=== PATIENT | female | born 1945 | race American Indian/Alaskan Native ===

== ENCOUNTER 2021-12-05 13:36 | Inpatient (IN) | payer OTHER, BC ==
[2021-12-05 16:32] LABS: BASO % 0.4 % (0-2.0); EOS % 0.6 % (0-4.5); HEMATOCRIT 34.4 % (32.4-45.2); HEMOGLOBIN 10.8 GM/dL (10.7-15.3); MCH 26.3 pg (25.7-33.7); MCHC 31.3 g/dl (32.0-36.0); MEAN CELL VOLUME 84.1 fl (80-96); MEAN PLT VOLUME 7.7 fl (7.5-11.1); MONO % 6.5 % (3.8-10.2); NEUT % 80.5 % (42.8-82.8); PLATELET COUNT 314 10^3/uL (134-434); RDW 15.6 % (11.6-15.6); WHITE BLOOD COUNT 9.5 K/mm3 (4.0-10.0)
[2021-12-05 16:43] LABS: CALCIUM 9.6 mg/dL (8.5-10.1)
[2021-12-05 16:44] LABS: ALBUMIN 2.9 g/dl (3.4-5.0); BLOOD UREA NITROGEN 17.4 mg/dL (7-18); MAGNESIUM 2.3 mg/dL (1.8-2.4)
[2021-12-05 16:47] LABS: CREATININE 0.7 mg/dL (0.55-1.3)
[2021-12-05 16:49] LABS: BILIRUBIN,TOTAL 0.4 mg/dL (0.2-1)
[2021-12-05 16:52] LABS: N-TERMINAL BNP 691.1 pg/ml (5-450)
[2021-12-05] MEDS ORDERED: LABETALOL HCL 5 MG/1 ML (100MG/20 ML VIAL) IVPUSH ONE (17:21)
[2021-12-05] MEDS: INSULIN SLIDING SCALE (NOVOLOG) 1 VIAL SQ SCH (21:46)
[2021-12-05] MEDS ORDERED: INSULIN (LEVEMIR) 100 UNITS/ML UNITS SQ ONE (22:00)
[2021-12-05] MEDS ORDERED: LIDOCAINE 5% TOPICAL PATCH TP ONE (22:45)
[2021-12-05] MEDS ORDERED: LIDOCAINE 5% TOPICAL PATCH ONE (23:32)
[2021-12-06] MEDS: LEVOTHYROXINE NA 88 MCG TABLET (FP) PO SCH (06:11)
[2021-12-06] MEDS: INSULIN SLIDING SCALE (NOVOLOG) 1 VIAL SQ SCH ×4 (06:17→21:27)
[2021-12-06] MEDS ORDERED: amLODIPine BESYLATE 5 MG TABLET (FP) PO SCH ×2 (08:00→10:00)
[2021-12-06 08:17] LABS: BASO % 0.6 % (0-2.0); EOS % 1.1 % (0-4.5); HEMATOCRIT 32.8 % (32.4-45.2); HEMOGLOBIN 10.5 GM/dL (10.7-15.3); LYMPH % 13.8 % (8-40); MCH 26.9 pg (25.7-33.7); MCHC 32.1 g/dl (32.0-36.0); MEAN CELL VOLUME 83.7 fl (80-96); MEAN PLT VOLUME 7.5 fl (7.5-11.1); MONO % 6.8 % (3.8-10.2); NEUT % 77.7 % (42.8-82.8); PLATELET COUNT 271 10^3/uL (134-434); RBC 3.91 M/mm3 (3.60-5.2); RDW 15.4 % (11.6-15.6); WHITE BLOOD COUNT 8.9 K/mm3 (4.0-10.0)
[2021-12-06 08:41] LABS: ACTIVATED PTT 34.4 SECONDS (25.2-36.5)
[2021-12-06 08:46] LABS: ALBUMIN 2.7 g/dl (3.4-5.0); CALCIUM 8.5 mg/dL (8.5-10.1)
[2021-12-06 08:47] LABS: BLOOD UREA NITROGEN 12.2 mg/dL (7-18)
[2021-12-06 08:49] LABS: CREATININE 0.8 mg/dL (0.55-1.3)
[2021-12-06 08:50] LABS: PHOSPHOROUS 3.1 mg/dL (2.5-4.9)
[2021-12-06 08:51] LABS: BILIRUBIN,TOTAL 0.6 mg/dL (0.2-1); TOT PROT 7.5 g/dl (6.4-8.2)
[2021-12-06] MEDS ORDERED: amLODIPine BESYLATE 5 MG TABLET (FP) ONE (08:53)
[2021-12-06] MEDS ORDERED: RAMIPRIL 5 MG CAPSULE ONE (08:53)
[2021-12-06] MEDS: amLODIPine BESYLATE 5 MG TABLET (FP) PO SCH (08:55)
[2021-12-06] MEDS: RAMIPRIL 5 MG CAPSULE PO SCH (08:55)
[2021-12-06 09:10] LABS: INR 1.06 (0.83-1.09); PROTHROMBIN TIME (PATIENT) 12.2 SEC (9.7-13.0)
[2021-12-06] MEDS ORDERED: RAMIPRIL 5 MG CAPSULE PO SCH (10:00)
[2021-12-06] MEDS ORDERED: LIDOCAINE PATCH REMOVAL MC ONE (11:00)
[2021-12-06] MEDS: TIMOLOL 0.25% OPHTHALMIC SOL 5 ML BOTTLE OU SCH ×2 (12:36→21:27)
[2021-12-06 13:07] LABS: SARS-CoV-2 NAA Not Detected (Not Detected)
[2021-12-06 15:55] LABS: BF WBC & OTHER NUCLEATED CELLS 1270 /mm3
[2021-12-06 16:19] LABS: BODY FLUID MONOCYTE 10 %
[2021-12-06] MEDS: ATORVASTATIN CA 10 MG TABLET (FP) PO SCH (21:27)
[2021-12-07] MEDS: INSULIN SLIDING SCALE (NOVOLOG) 1 VIAL SQ SCH ×4 (06:01→21:48)
[2021-12-07] MEDS: LEVOTHYROXINE NA 88 MCG TABLET (FP) PO SCH (06:34)
[2021-12-07] MEDS: TIMOLOL 0.25% OPHTHALMIC SOL 5 ML BOTTLE OU SCH ×2 (09:30→21:42)
[2021-12-07] MEDS: ACETAMINOPHEN 325 MG TABLET (FP) PO PRN (09:30)
[2021-12-07] MEDS: amLODIPine BESYLATE 5 MG TABLET (FP) PO SCH (09:30)
[2021-12-07] MEDS: RAMIPRIL 5 MG CAPSULE PO SCH (09:30)
[2021-12-07] MEDS: ATORVASTATIN CA 10 MG TABLET (FP) PO SCH (21:42)
[2021-12-08] MEDS: INSULIN SLIDING SCALE (NOVOLOG) 1 VIAL SQ SCH ×4 (06:08→21:23)
[2021-12-08] MEDS: LEVOTHYROXINE NA 88 MCG TABLET (FP) PO SCH (06:09)
[2021-12-08] MEDS: amLODIPine BESYLATE 5 MG TABLET (FP) PO SCH (08:08)
[2021-12-08] MEDS: RAMIPRIL 5 MG CAPSULE PO SCH (08:08)
[2021-12-08] MEDS: ACETAMINOPHEN 325 MG TABLET (FP) PO PRN (08:20)
[2021-12-08] MEDS: TIMOLOL 0.25% OPHTHALMIC SOL 5 ML BOTTLE OU SCH ×2 (09:17→21:20)
[2021-12-08 09:38] LABS: HEMATOCRIT 33.2 % (32.4-45.2); HEMOGLOBIN 10.7 GM/dL (10.7-15.3); MCH 26.9 pg (25.7-33.7); MCHC 32.2 g/dl (32.0-36.0); MEAN CELL VOLUME 83.4 fl (80-96); PLATELET COUNT 299 10^3/uL (134-434); RBC 3.98 M/mm3 (3.60-5.2); RDW 15.8 % (11.6-15.6); WHITE BLOOD COUNT 14.9 K/mm3 (4.0-10.0)
[2021-12-08] MEDS: INSULIN (LEVEMIR) 100 UNITS/ML UNITS SQ SCH (09:43)
[2021-12-08 09:53] LABS: CALCIUM 8.3 mg/dL (8.5-10.1)
[2021-12-08 09:57] LABS: CREATININE 1.1 mg/dL (0.55-1.3)
[2021-12-08 09:58] LABS: TOT PROT 6.1 g/dl (6.4-8.2)
[2021-12-08 09:59] LABS: BILIRUBIN,TOTAL 0.9 mg/dL (0.2-1)
[2021-12-08 10:04] LABS: ALBUMIN 2.1 g/dl (3.4-5.0); BLOOD UREA NITROGEN 37.4 mg/dL (7-18)
[2021-12-08 14:08] LABS: BODY FLUID ALBUMIN 2.6 g/dL (Not Estab.)
[2021-12-08] MEDS: ATORVASTATIN CA 10 MG TABLET (FP) PO SCH (21:19)
[2021-12-09] MEDS: INSULIN SLIDING SCALE (NOVOLOG) 1 VIAL SQ SCH ×4 (06:01→21:28)
[2021-12-09] MEDS: INSULIN (LEVEMIR) 100 UNITS/ML UNITS SQ SCH (06:02)
[2021-12-09] MEDS: LEVOTHYROXINE NA 88 MCG TABLET (FP) PO SCH (06:37)
[2021-12-09] MEDS: amLODIPine BESYLATE 5 MG TABLET (FP) PO SCH (09:33)
[2021-12-09] MEDS: TIMOLOL 0.25% OPHTHALMIC SOL 5 ML BOTTLE OU SCH ×2 (09:33→21:23)
[2021-12-09] MEDS: RAMIPRIL 5 MG CAPSULE PO SCH (09:33)
[2021-12-09] MEDS ORDERED: INSULIN (NOVOLOG) ASPART 100 UNITS/ML 10ML VIAL ONE ×2 (17:18→18:00)
[2021-12-09] MEDS: guaiFENesin/D-METHORPHAN HB 10 ML UNIT-DOSE CUPS PO PRN (21:20)
[2021-12-09] MEDS: ATORVASTATIN CA 10 MG TABLET (FP) PO SCH (21:21)
[2021-12-10] MEDS: LEVOTHYROXINE NA 88 MCG TABLET (FP) PO SCH (06:32)
[2021-12-10] MEDS: INSULIN (LEVEMIR) 100 UNITS/ML UNITS SQ SCH (06:33)
[2021-12-10] MEDS: INSULIN SLIDING SCALE (NOVOLOG) 1 VIAL SQ SCH ×4 (06:37→22:01)
[2021-12-10] MEDS: RAMIPRIL 5 MG CAPSULE PO SCH (09:10)
[2021-12-10] MEDS: amLODIPine BESYLATE 5 MG TABLET (FP) PO SCH (09:11)
[2021-12-10] MEDS: TIMOLOL 0.25% OPHTHALMIC SOL 5 ML BOTTLE OU SCH ×2 (09:11→22:03)
[2021-12-10] MEDS: guaiFENesin/D-METHORPHAN HB 10 ML UNIT-DOSE CUPS PO PRN (16:04)
[2021-12-10] MEDS: ATORVASTATIN CA 10 MG TABLET (FP) PO SCH (22:01)
[2021-12-11] MEDS: INSULIN SLIDING SCALE (NOVOLOG) 1 VIAL SQ SCH ×4 (06:46→21:18)
[2021-12-11] MEDS: INSULIN (LEVEMIR) 100 UNITS/ML UNITS SQ SCH (06:46)
[2021-12-11] MEDS: LEVOTHYROXINE NA 88 MCG TABLET (FP) PO SCH (06:46)
[2021-12-11] MEDS: amLODIPine BESYLATE 5 MG TABLET (FP) PO SCH (08:26)
[2021-12-11] MEDS: TIMOLOL 0.25% OPHTHALMIC SOL 5 ML BOTTLE OU SCH ×2 (09:24→21:18)
[2021-12-11] MEDS: RAMIPRIL 5 MG CAPSULE PO SCH (09:24)
[2021-12-11] MEDS ORDERED: INSULIN (NOVOLOG) ASPART 100 UNITS/ML 10ML VIAL ONE (11:37)
[2021-12-11 13:11] VITALS: BMI 18.9
[2021-12-11] MEDS: ACETAMINOPHEN 325 MG TABLET (FP) PO PRN (17:05)
[2021-12-11] MEDS ORDERED: oxyCODONE HCL 5 MG TABLET PO PRN (18:00)
[2021-12-11] MEDS ORDERED: ACETAMINOPHEN 325 MG TABLET (FP) PO PRN (18:00)
[2021-12-11] MEDS: BENZOCAINE/MENTH/CETYLPYRD CL 1 EACH LOZENGE MM PRN (18:53)
[2021-12-11] MEDS: ATORVASTATIN CA 10 MG TABLET (FP) PO SCH (21:17)
[2021-12-12] MEDS: INSULIN SLIDING SCALE (NOVOLOG) 1 VIAL SQ SCH ×4 (06:13→22:00)
[2021-12-12] MEDS: INSULIN (LEVEMIR) 100 UNITS/ML UNITS SQ SCH (06:14)
[2021-12-12] MEDS: LEVOTHYROXINE NA 88 MCG TABLET (FP) PO SCH (06:35)
[2021-12-12] MEDS: BENZOCAINE/MENTH/CETYLPYRD CL 1 EACH LOZENGE MM PRN (06:35)
[2021-12-12 07:46] LABS: ALBUMIN 1.8 g/dl (3.4-5.0); CALCIUM 7.8 mg/dL (8.5-10.1)
[2021-12-12 07:49] LABS: CREATININE 0.7 mg/dL (0.55-1.3)
[2021-12-12 07:51] LABS: BILIRUBIN,TOTAL 0.5 mg/dL (0.2-1); TOT PROT 5.8 g/dl (6.4-8.2)
[2021-12-12 08:12] LABS: BASO % 0.5 % (0-2.0); EOS % 2.9 % (0-4.5); HEMATOCRIT 29.1 % (32.4-45.2); HEMOGLOBIN 9.7 GM/dL (10.7-15.3); LYMPH % 9.1 % (8-40); MCH 27.6 pg (25.7-33.7); MCHC 33.3 g/dl (32.0-36.0); MEAN CELL VOLUME 82.9 fl (80-96); MEAN PLT VOLUME 7.5 fl (7.5-11.1); MONO % 8.9 % (3.8-10.2); NEUT % 78.6 % (42.8-82.8); PLATELET COUNT 267 10^3/uL (134-434); RBC 3.51 M/mm3 (3.60-5.2); RDW 15.3 % (11.6-15.6); WHITE BLOOD COUNT 7.4 K/mm3 (4.0-10.0)
[2021-12-12] MEDS: amLODIPine BESYLATE 5 MG TABLET (FP) PO SCH (08:20)
[2021-12-12] MEDS: RAMIPRIL 5 MG CAPSULE PO SCH (08:20)
[2021-12-12] MEDS: TIMOLOL 0.25% OPHTHALMIC SOL 5 ML BOTTLE OU SCH ×2 (10:23→21:59)
[2021-12-12] MEDS: ATORVASTATIN CA 10 MG TABLET (FP) PO SCH (21:59)
[2021-12-13] MEDS: LEVOTHYROXINE NA 88 MCG TABLET (FP) PO SCH (06:11)
[2021-12-13] MEDS: INSULIN (LEVEMIR) 100 UNITS/ML UNITS SQ SCH (06:14)
[2021-12-13] MEDS: INSULIN SLIDING SCALE (NOVOLOG) 1 VIAL SQ SCH ×4 (06:14→22:02)
[2021-12-13] MEDS ORDERED: CYANOCOBALAMIN (VITAMIN B-12) 1000 MCG/1 ML VIAL IM ONE (08:00)
[2021-12-13] MEDS: amLODIPine BESYLATE 5 MG TABLET (FP) PO SCH (08:24)
[2021-12-13] MEDS: RAMIPRIL 5 MG CAPSULE PO SCH (08:26)
[2021-12-13] MEDS: FOLIC ACID 1 MG TABLET (FP) PO SCH (09:27)
[2021-12-13] MEDS: TIMOLOL 0.25% OPHTHALMIC SOL 5 ML BOTTLE OU SCH ×2 (09:29→22:33)
[2021-12-13] MEDS: ATORVASTATIN CA 10 MG TABLET (FP) PO SCH (21:57)
[2021-12-14 06:02] VITALS: BP 109/57; PULSE 69; TEMP 97.9
[2021-12-14] MEDS: INSULIN (LEVEMIR) 100 UNITS/ML UNITS SQ SCH (06:25)
[2021-12-14] MEDS: INSULIN SLIDING SCALE (NOVOLOG) 1 VIAL SQ SCH ×2 (06:26→11:55)
[2021-12-14] MEDS: LEVOTHYROXINE NA 88 MCG TABLET (FP) PO SCH (06:52)
[2021-12-14] MEDS: amLODIPine BESYLATE 5 MG TABLET (FP) PO SCH (10:11)
[2021-12-14] MEDS: FOLIC ACID 1 MG TABLET (FP) PO SCH (10:11)
[2021-12-14] MEDS: TIMOLOL 0.25% OPHTHALMIC SOL 5 ML BOTTLE OU SCH (10:11)
[2021-12-14] MEDS: RAMIPRIL 5 MG CAPSULE PO SCH (13:34)
== END 2021-12-14 16:10 | disposition home health service (06) | DRG 181 ==
LOC: JER 13:36 → JERBED 18:50 → J6S 12-06 19:07
PROVIDERS: ADMIT Hospitalist; ATTEND Internal Medicine
PROC: 0W9B30Z Drainage of Left Pleural Cavity with Drainage Device, Percutaneous Approach (ICD-10-PCS; principal; 2021-12-06)
PROC: 0BBP3ZX Excision of Left Pleura, Percutaneous Approach, Diagnostic (ICD-10-PCS; 2021-12-12)
PROC: 0WPBX0Z Removal of Drainage Device from Left Pleural Cavity, External Approach (ICD-10-PCS; 2021-12-13)
DX: C34.32 Malignant neoplasm of lower lobe, left bronchus or lung (principal); R64 Cachexia; Z68.1 Body mass index [BMI] 19.9 or less, adult; J98.11 Atelectasis; J91.0 Malignant pleural effusion; E03.9 Hypothyroidism, unspecified; E11.42 Type 2 diabetes mellitus with diabetic polyneuropathy; R91.8 Other nonspecific abnormal finding of lung field; I16.0 Hypertensive urgency; I10 Essential (primary) hypertension; R59.0 Localized enlarged lymph nodes; R60.0 Localized edema; E05.00 Thyrotoxicosis with diffuse goiter without thyrotoxic crisis or storm
CPT/HCPCS: 32408; 32557; 36415; 71045-TC-FY; 71046-TC-FY; 71260-TC; 77012-TC; 80053; 82042; 82150; 82945; 82962; 83615; 83735; 83880; 83986; 84100; 84157; 84443; 84478; 84484; 85025; 85027; 85610; 85730; 86850; 86900; 86901; 87070; 87075; 87102; 87116; 87205; 87206; 87210; 88108; 88305-TC; 88341-TC; 93005; 93010; 93306-TC; 93970-TC; 99285-25; C1729; C1769; C9803; Q9967; U0003; U0005

== ENCOUNTER 2022-01-02 04:59 | Day surgery (SDC) | payer OTHER, BC ==
[2021-12-29 16:12] VITALS: BMI 20.1
[2022-01-02] MEDS ORDERED: SODIUM CHLORIDE 250 ML IV ONE (09:00)
[2022-01-02] MEDS ORDERED: DEXAMETHASONE SODIUM PHOSPHATE 10 MG in SODIUM CHLORIDE 50 ML IVPB ONE (09:30)
[2022-01-02] MEDS ORDERED: PALONOSETRON HCL 0.25 MG/5 ML VIAL IVPUSH ONE (09:30)
[2022-01-02] MEDS ORDERED: FOSAPREPITANT DIMEGLUMINE 150 MG VIAL IVPB ONE (09:30)
[2022-01-02] MEDS ORDERED: CARBOPLATIN IVPB ONE (10:00)
[2022-01-02] MEDS ORDERED: SODIUM CHLORIDE IVPB ONE (10:00)
[2022-01-02] MEDS ORDERED: SODIUM CHLORIDE IV ONE (10:30)
[2022-01-02] MEDS ORDERED: ETOPOSIDE IV ONE (10:30)
[2022-01-02] MEDS ORDERED: MIDAZOLAM HCL 2 MG/2 ML SINGLE DOSE VIAL ONE (10:59)
[2022-01-02] MEDS ORDERED: MIDAZOLAM HCL 2 MG/2 ML SINGLE DOSE VIAL IVPUSH ONE ×2 (11:10→11:20)
[2022-01-02] MEDS ORDERED: FOSAPREPITANT DIMEGLUMINE 150 MG in SODIUM CHLORIDE 145 ML IVPB ONE (14:00)
[2022-01-02 17:19] VITALS: TEMP 98.1
[2022-01-02 18:00] VITALS: BP 166/61; PULSE 81
== END 2022-01-02 18:30 | disposition home or self-care (01) ==
LOC: JONCCHEMO 04:59 → JRADIR 04:59 → JONCCHEMO 18:30
PROVIDERS: ATTEND Internal Medicine Hematology & Oncology
PROC: 0JH63WZ Insertion of Totally Implantable Vascular Access Device into Chest Subcutaneous Tissue and Fascia, Percutaneous Approach (ICD-10-PCS; principal; 2022-01-02)
PROC: 02HV33Z Insertion of Infusion Device into Superior Vena Cava, Percutaneous Approach (ICD-10-PCS; 2022-01-02)
PROC: B518ZZA Fluoroscopy of Superior Vena Cava, Guidance (ICD-10-PCS; 2022-01-02)
PROC: 3E04305 Introduction of Other Antineoplastic into Central Vein, Percutaneous Approach (ICD-10-PCS; 2022-01-02)
DX: C54.1 Malignant neoplasm of endometrium (principal)
CPT/HCPCS: 36561; 96367; 96375; 96413; 96415; 96417; C1788; J1453; J2469

== ENCOUNTER 2022-01-03 07:45 | Day surgery (SDC) | payer OTHER, BC ==
[2022-01-03] MEDS ORDERED: SODIUM CHLORIDE 250 ML IV ONE (09:00)
[2022-01-03] MEDS ORDERED: DEXAMETHASONE SODIUM PHOSPHATE 10 MG in SODIUM CHLORIDE 50 ML IVPB ONE (09:30)
[2022-01-03] MEDS ORDERED: SODIUM CHLORIDE IV ONE (10:00)
[2022-01-03] MEDS ORDERED: ETOPOSIDE IV ONE (10:00)
[2022-01-03 16:48] VITALS: TEMP 97.8
[2022-01-03 17:05] VITALS: BP 148/62; PULSE 72
== END 2022-01-03 14:10 | disposition home or self-care (01) ==
LOC: JONCCHEMO 07:45
PROVIDERS: ATTEND Internal Medicine Hematology & Oncology
DX: Z51.11 Encounter for antineoplastic chemotherapy (principal); C54.1 Malignant neoplasm of endometrium
CPT/HCPCS: 96375; 96413; 96415

== ENCOUNTER 2022-01-04 08:24 | Day surgery (SDC) | payer OTHER, BC ==
[2022-01-04] MEDS ORDERED: SODIUM CHLORIDE 250 ML IV ONE (09:00)
[2022-01-04] MEDS ORDERED: DEXAMETHASONE SODIUM PHOSPHATE 10 MG in SODIUM CHLORIDE 50 ML IVPB ONE (09:30)
[2022-01-04] MEDS ORDERED: ETOPOSIDE IV ONE (10:00)
[2022-01-04] MEDS ORDERED: SODIUM CHLORIDE IV ONE (10:00)
[2022-01-04 11:53] LABS: HEMATOCRIT 29.6 % (32.4-45.2); HEMOGLOBIN 9.7 GM/dL (10.7-15.3); MCHC 32.8 g/dl (32.0-36.0); MEAN CELL VOLUME 82.3 fl (80-96); MEAN PLT VOLUME 7.3 fl (7.5-11.1); PLATELET COUNT 287 10^3/uL (134-434); WHITE BLOOD COUNT 15.8 K/mm3 (4.0-10.0)
[2022-01-04 12:13] LABS: ALBUMIN 2.7 g/dl (3.4-5.0); CALCIUM 8.9 mg/dL (8.5-10.1)
[2022-01-04 12:16] LABS: CREATININE 0.9 mg/dL (0.55-1.3)
[2022-01-04 12:18] LABS: BILIRUBIN,TOTAL 0.3 mg/dL (0.2-1); TOT PROT 7.6 g/dl (6.4-8.2)
[2022-01-04 12:39] LABS: ANISOCYTOSIS 0; MACROCYTOSIS 0
[2022-01-04] MEDS ORDERED: PEGFILGRASTIM (NEULASTA ONPRO) 6 MG/0.6 ML KIT SQ ONE (14:00)
[2022-01-04 15:37] VITALS: TEMP 97.5
[2022-01-04 15:46] VITALS: BP 164/60; PULSE 71
[2022-01-04] MEDS ORDERED: PORTA CATH FLUSH 10 ML IVPUSH PRN (15:46)
== END 2022-01-04 14:30 | disposition home or self-care (01) ==
LOC: JONCCHEMO 08:24
PROVIDERS: ATTEND Internal Medicine Hematology & Oncology
PROC: 3E04305 Introduction of Other Antineoplastic into Central Vein, Percutaneous Approach (ICD-10-PCS; principal; 2022-01-04)
PROC: 3E013GC Introduction of Other Therapeutic Substance into Subcutaneous Tissue, Percutaneous Approach (ICD-10-PCS; 2022-01-04)
DX: Z51.11 Encounter for antineoplastic chemotherapy (principal); C54.1 Malignant neoplasm of endometrium
CPT/HCPCS: 36415; 80053; 85025; 96367; 96372; 96413; 96415; J2506

== ENCOUNTER 2022-01-20 10:35 | Inpatient (IN) | payer OTHER, BC ==
[2022-01-20 11:00] VITALS: BMI 19.7
[2022-01-20] MEDS ORDERED: ACETAMINOPHEN 1000 MG/100 ML BAG IVPB ONE (11:55)
[2022-01-20] MEDS ORDERED: morphine SULFATE 4 MG/ML VIAL IVPUSH ONE ×2 (12:37→17:17)
[2022-01-20] MEDS ORDERED: LIDOCAINE 5% TOPICAL PATCH TP ONE (12:38)
[2022-01-20] MEDS ORDERED: LIDOCAINE 5% TOPICAL PATCH ONE (13:37)
[2022-01-20 13:38] LABS: HEMATOCRIT 27.1 % (32.4-45.2); HEMOGLOBIN 8.8 GM/dL (10.7-15.3); MCH 26.3 pg (25.7-33.7); MCHC 32.3 g/dl (32.0-36.0); MEAN CELL VOLUME 81.3 fl (80-96); MEAN PLT VOLUME 6.8 fl (7.5-11.1); PLATELET COUNT 231 10^3/uL (134-434); RBC 3.33 M/mm3 (3.60-5.2); RDW 17.5 % (11.6-15.6); WHITE BLOOD COUNT 23.2 K/mm3 (4.0-10.0)
[2022-01-20 13:59] LABS: CALCIUM 8.9 mg/dL (8.5-10.1)
[2022-01-20 14:00] LABS: ALBUMIN 2.6 g/dl (3.4-5.0); BLOOD UREA NITROGEN 10.2 mg/dL (7-18)
[2022-01-20 14:00] LABS: PH,URINE 7.5 (5.0-8.0); URINE APPEARANCE CLEAR; URINE BILIRUBIN NEGATIVE (NEGATIVE); URINE COLOR YELLOW; URINE GLUCOSE (UA) NEGATIVE (NEGATIVE); URINE KETONE NEGATIVE (NEGATIVE); URINE LEUK ESTERASE NEGATIVE (NEGATIVE); URINE NITRITE NEGATIVE (NEGATIVE); URINE PROTEIN NEGATIVE (NEGATIVE); URINE UROBILINOGEN 0.2 mg/dL (0.2-1.0)
[2022-01-20 14:03] LABS: CREATININE 0.7 mg/dL (0.55-1.3)
[2022-01-20 14:05] LABS: BILIRUBIN,TOTAL 0.3 mg/dL (0.2-1); TOT PROT 7.3 g/dl (6.4-8.2)
[2022-01-20] MEDS ORDERED: POTASSIUM CHLORIDE TABS 20 MEQ TABLET.ER (FP) PO ONE ×2 (14:26→14:32)
[2022-01-20 15:11] LABS: ANISOCYTOSIS 2+; MACROCYTOSIS 0; TEAR DROP CELLS 1+
[2022-01-20] MEDS ORDERED: morphine SULFATE 4 MG/ML VIAL ONE (17:21)
[2022-01-20] MEDS ORDERED: ONDANSETRON 4 MG/2 ML VIAL IVPUSH ONE (17:33)
[2022-01-20] MEDS ORDERED: ONDANSETRON 4 MG/2 ML VIAL ONE (17:33)
[2022-01-20] MEDS ORDERED: LIDOCAINE PATCH REMOVAL MC ONE (22:00)
[2022-01-20] MEDS ORDERED: ACETAMINOPHEN 1000 MG/100 ML BAG IVPB PRN (22:34)
[2022-01-21] MEDS: LEVOTHYROXINE NA 88 MCG TABLET (FP) PO SCH (06:17)
[2022-01-21] MEDS ORDERED: LIDOCAINE 5% TOPICAL PATCH TP SCH (10:00)
[2022-01-21 10:15] LABS: HEMOGLOBIN 8.4 GM/dL (10.7-15.3); MCH 26.6 pg (25.7-33.7); MCHC 32.3 g/dl (32.0-36.0); MEAN CELL VOLUME 82.2 fl (80-96); PLATELET COUNT 239 10^3/uL (134-434); RBC 3.17 M/mm3 (3.60-5.2); RDW 18.1 % (11.6-15.6)
[2022-01-21] MEDS: amLODIPine BESYLATE 5 MG TABLET (FP) PO SCH (10:17)
[2022-01-21] MEDS: ENOXAPARIN NA (PORCINE) 40 MG/0.4 ML DISP.SYRIN SQ SCH (10:17)
[2022-01-21] MEDS: LISINOPRIL 10 MG TABLET PO SCH (10:17)
[2022-01-21 10:26] LABS: CALCIUM 8.6 mg/dL (8.5-10.1)
[2022-01-21 10:27] LABS: ALBUMIN 2.3 g/dl (3.4-5.0); BLOOD UREA NITROGEN 10.8 mg/dL (7-18)
[2022-01-21 10:30] LABS: CREATININE 0.7 mg/dL (0.55-1.3)
[2022-01-21 10:31] LABS: BILIRUBIN,TOTAL 0.4 mg/dL (0.2-1); TOT PROT 6.6 g/dl (6.4-8.2)
[2022-01-21] MEDS: TIMOLOL 0.25% OPHTHALMIC SOL 5 ML BOTTLE OU SCH ×3 (10:40→22:09)
[2022-01-21] MEDS: INSULIN SLIDING SCALE (NOVOLOG) 1 VIAL SQ SCH ×4 (10:41→22:13)
[2022-01-21 11:14] LABS: ANISOCYTOSIS 1+; MACROCYTOSIS 0
[2022-01-21] MEDS ORDERED: FENTANYL PATCH WASTE TD PRN (11:54)
[2022-01-21] MEDS ORDERED: fentaNYL 12mcg/hr PATCH.TD72 TD SCH (12:00)
[2022-01-21] MEDS ORDERED: LIDOCAINE PATCH REMOVAL MC SCH (22:00)
[2022-01-21] MEDS: morphine SULFATE 4 MG/ML VIAL IVPUSH PRN (22:18)
[2022-01-22] MEDS: LEVOTHYROXINE NA 88 MCG TABLET (FP) PO SCH (06:29)
[2022-01-22] MEDS: INSULIN SLIDING SCALE (NOVOLOG) 1 VIAL SQ SCH ×4 (06:31→22:06)
[2022-01-22] MEDS ORDERED: fentaNYL 25mcg/hr PATCH.TD72 TD SCH (09:00)
[2022-01-22] MEDS: amLODIPine BESYLATE 5 MG TABLET (FP) PO SCH (10:28)
[2022-01-22] MEDS: LISINOPRIL 10 MG TABLET PO SCH (10:28)
[2022-01-22] MEDS: TIMOLOL 0.25% OPHTHALMIC SOL 5 ML BOTTLE OU SCH ×2 (10:28→22:03)
[2022-01-22] MEDS: ENOXAPARIN NA (PORCINE) 40 MG/0.4 ML DISP.SYRIN SQ SCH (10:29)
[2022-01-22] MEDS: FENTANYL PATCH WASTE TD PRN (10:29)
[2022-01-22] MEDS ORDERED: INSULIN (NOVOLOG) ASPART 100 UNITS/ML 10ML VIAL ONE (11:10)
[2022-01-22] MEDS ORDERED: PORTA CATH FLUSH 10 ML IVPUSH PRN (12:40)
[2022-01-22] MEDS: morphine SULFATE 4 MG/ML VIAL IVPUSH PRN (13:42)
[2022-01-22] MEDS: RAMIPRIL 5 MG CAPSULE PO SCH (14:22)
[2022-01-23] MEDS ORDERED: oxyCODONE HCL 5 MG TABLET PO ONE (05:10)
[2022-01-23] MEDS: LEVOTHYROXINE NA 88 MCG TABLET (FP) PO SCH (06:01)
[2022-01-23] MEDS: INSULIN SLIDING SCALE (NOVOLOG) 1 VIAL SQ SCH ×4 (06:01→21:39)
[2022-01-23 08:12] LABS: BASO % 0.5 % (0-2.0); EOS % 0.1 % (0-4.5); HEMOGLOBIN 7.6 GM/dL (10.7-15.3); LYMPH % 11.3 % (8-40); MCH 27.1 pg (25.7-33.7); MCHC 32.9 g/dl (32.0-36.0); MEAN CELL VOLUME 82.5 fl (80-96); MEAN PLT VOLUME 7.1 fl (7.5-11.1); MONO % 8.7 % (3.8-10.2); NEUT % 79.4 % (42.8-82.8); PLATELET COUNT 259 10^3/uL (134-434); RBC 2.79 M/mm3 (3.60-5.2); RDW 17.9 % (11.6-15.6); WHITE BLOOD COUNT 10.7 K/mm3 (4.0-10.0)
[2022-01-23 08:20] LABS: CALCIUM 8.1 mg/dL (8.5-10.1)
[2022-01-23 08:21] LABS: ALBUMIN 2.1 g/dl (3.4-5.0)
[2022-01-23 08:24] LABS: CREATININE 0.7 mg/dL (0.55-1.3)
[2022-01-23 08:26] LABS: BILIRUBIN,TOTAL 0.6 mg/dL (0.2-1); TOT PROT 6.1 g/dl (6.4-8.2)
[2022-01-23] MEDS ORDERED: TIZANIDINE HCL 2 MG TABLET PO PRN (08:41)
[2022-01-23] MEDS: amLODIPine BESYLATE 5 MG TABLET (FP) PO SCH (10:05)
[2022-01-23] MEDS: ENOXAPARIN NA (PORCINE) 40 MG/0.4 ML DISP.SYRIN SQ SCH (10:05)
[2022-01-23] MEDS: RAMIPRIL 5 MG CAPSULE PO SCH (10:05)
[2022-01-23] MEDS: TIMOLOL 0.25% OPHTHALMIC SOL 5 ML BOTTLE OU SCH ×2 (10:19→21:40)
[2022-01-23] MEDS: GABAPENTIN 100 MG CAPSULE PO SCH ×2 (13:08→21:38)
[2022-01-23] MEDS ORDERED: oxyCODONE HCL 5 MG TABLET PO PRN (14:00)
[2022-01-23] MEDS ORDERED: ACETAMINOPHEN 325 MG TABLET (FP) PO PRN (14:00)
[2022-01-24] MEDS: LEVOTHYROXINE NA 88 MCG TABLET (FP) PO SCH (06:49)
[2022-01-24] MEDS: INSULIN SLIDING SCALE (NOVOLOG) 1 VIAL SQ SCH ×4 (06:50→21:40)
[2022-01-24] MEDS: GABAPENTIN 100 MG CAPSULE PO SCH ×3 (06:50→21:40)
[2022-01-24] MEDS ORDERED: FENTANYL PATCH WASTE TD PRN (08:00)
[2022-01-24] MEDS ORDERED: fentaNYL 50mcg/hr PATCH.TD72 TD SCH (08:00)
[2022-01-24] MEDS ORDERED: DOCUSATE SODIUM 100 MG CAPSULE (FP) PO PRN (08:00)
[2022-01-24 08:12] LABS: HEMATOCRIT 25.1 % (32.4-45.2); MCH 26.7 pg (25.7-33.7); MCHC 32.1 g/dl (32.0-36.0); MEAN CELL VOLUME 83.2 fl (80-96); PLATELET COUNT 301 10^3/uL (134-434); RBC 3.02 M/mm3 (3.60-5.2); RDW 18.2 % (11.6-15.6); WHITE BLOOD COUNT 11.2 K/mm3 (4.0-10.0)
[2022-01-24 08:27] LABS: CALCIUM 8.6 mg/dL (8.5-10.1)
[2022-01-24 08:29] LABS: ALBUMIN 2.2 g/dl (3.4-5.0); BLOOD UREA NITROGEN 16.8 mg/dL (7-18)
[2022-01-24 08:31] LABS: CREATININE 0.7 mg/dL (0.55-1.3)
[2022-01-24 08:33] LABS: BILIRUBIN,TOTAL 0.2 mg/dL (0.2-1); TOT PROT 6.2 g/dl (6.4-8.2)
[2022-01-24] MEDS: amLODIPine BESYLATE 5 MG TABLET (FP) PO SCH (10:00)
[2022-01-24] MEDS: ENOXAPARIN NA (PORCINE) 40 MG/0.4 ML DISP.SYRIN SQ SCH (10:00)
[2022-01-24] MEDS: TIMOLOL 0.25% OPHTHALMIC SOL 5 ML BOTTLE OU SCH ×2 (10:00→21:39)
[2022-01-24] MEDS: RAMIPRIL 5 MG CAPSULE PO SCH (10:01)
[2022-01-24] MEDS: FENTANYL PATCH WASTE TD PRN (16:36)
[2022-01-24] MEDS: ONDANSETRON 4 MG/2 ML VIAL IVPUSH PRN (16:37)
[2022-01-25] MEDS: LEVOTHYROXINE NA 88 MCG TABLET (FP) PO SCH (06:27)
[2022-01-25] MEDS: GABAPENTIN 100 MG CAPSULE PO SCH ×3 (06:27→21:40)
[2022-01-25] MEDS: INSULIN SLIDING SCALE (NOVOLOG) 1 VIAL SQ SCH ×4 (06:27→21:36)
[2022-01-25] MEDS ORDERED: FENTANYL PATCH WASTE MC PRN (08:41)
[2022-01-25] MEDS ORDERED: fentaNYL 25mcg/hr PATCH.TD72 TD SCH (08:45)
[2022-01-25] MEDS: TIMOLOL 0.25% OPHTHALMIC SOL 5 ML BOTTLE OU SCH ×2 (09:27→21:40)
[2022-01-25] MEDS: amLODIPine BESYLATE 5 MG TABLET (FP) PO SCH (09:27)
[2022-01-25] MEDS: RAMIPRIL 5 MG CAPSULE PO SCH (09:27)
[2022-01-25] MEDS: ENOXAPARIN NA (PORCINE) 40 MG/0.4 ML DISP.SYRIN SQ SCH (09:27)
[2022-01-25] MEDS: ONDANSETRON 4 MG/2 ML VIAL IVPUSH PRN (19:07)
[2022-01-26] MEDS: LEVOTHYROXINE NA 88 MCG TABLET (FP) PO SCH (06:07)
[2022-01-26] MEDS: GABAPENTIN 100 MG CAPSULE PO SCH ×3 (06:07→22:50)
[2022-01-26] MEDS: INSULIN SLIDING SCALE (NOVOLOG) 1 VIAL SQ SCH ×4 (06:13→23:00)
[2022-01-26 11:16] LABS: HEMATOCRIT 26.5 % (32.4-45.2); HEMOGLOBIN 8.4 GM/dL (10.7-15.3); MCH 26.7 pg (25.7-33.7); MCHC 31.7 g/dl (32.0-36.0); MEAN CELL VOLUME 84.2 fl (80-96); MEAN PLT VOLUME 7.2 fl (7.5-11.1); PLATELET COUNT 356 10^3/uL (134-434); RBC 3.15 M/mm3 (3.60-5.2); RDW 18.6 % (11.6-15.6); WHITE BLOOD COUNT 12.9 K/mm3 (4.0-10.0)
[2022-01-26 11:34] LABS: ALBUMIN 2.3 g/dl (3.4-5.0); BLOOD UREA NITROGEN 20.1 mg/dL (7-18); CALCIUM 8.7 mg/dL (8.5-10.1)
[2022-01-26 11:37] LABS: CREATININE 0.8 mg/dL (0.55-1.3)
[2022-01-26 11:38] LABS: BILIRUBIN,TOTAL 0.3 mg/dL (0.2-1); TOT PROT 6.8 g/dl (6.4-8.2)
[2022-01-26] MEDS: RAMIPRIL 5 MG CAPSULE PO SCH (12:50)
[2022-01-26] MEDS: amLODIPine BESYLATE 5 MG TABLET (FP) PO SCH (12:50)
[2022-01-26] MEDS: TIMOLOL 0.25% OPHTHALMIC SOL 5 ML BOTTLE OU SCH ×2 (15:44→23:08)
[2022-01-26] MEDS: ENOXAPARIN NA (PORCINE) 40 MG/0.4 ML DISP.SYRIN SQ SCH (15:45)
[2022-01-26] MEDS: ACETAMINOPHEN 325 MG TABLET (FP) PO PRN (22:52)
[2022-01-26] MEDS: ONDANSETRON 4 MG/2 ML VIAL IVPUSH PRN (23:08)
[2022-01-27 03:58] LABS: URINE APPEARANCE CLOUDY; URINE BILIRUBIN NEGATIVE (NEGATIVE); URINE COLOR DK YELLOW; URINE GLUCOSE (UA) NEGATIVE (NEGATIVE); URINE KETONE 1+ (NEGATIVE); URINE LEUK ESTERASE NEGATIVE (NEGATIVE); URINE NITRITE NEGATIVE (NEGATIVE); URINE PROTEIN TRACE (NEGATIVE); URINE UROBILINOGEN 0.2 mg/dL (0.2-1.0)
[2022-01-27] MEDS: GABAPENTIN 100 MG CAPSULE PO SCH ×3 (05:58→22:55)
[2022-01-27] MEDS: INSULIN SLIDING SCALE (NOVOLOG) 1 VIAL SQ SCH ×4 (06:01→22:51)
[2022-01-27] MEDS: LEVOTHYROXINE NA 88 MCG TABLET (FP) PO SCH (06:03)
[2022-01-27] MEDS: ENOXAPARIN NA (PORCINE) 40 MG/0.4 ML DISP.SYRIN SQ SCH (10:03)
[2022-01-27] MEDS: RAMIPRIL 5 MG CAPSULE PO SCH (10:04)
[2022-01-27] MEDS: amLODIPine BESYLATE 5 MG TABLET (FP) PO SCH (10:04)
[2022-01-27] MEDS: TIMOLOL 0.25% OPHTHALMIC SOL 5 ML BOTTLE OU SCH ×2 (10:10→22:55)
[2022-01-27] MEDS: oxyCODONE HCL 5 MG TABLET PO PRN (14:31)
[2022-01-27] MEDS: ACETAMINOPHEN 325 MG TABLET (FP) PO PRN (14:32)
[2022-01-27] MEDS ORDERED: FENTANYL PATCH WASTE MC PRN (15:09)
[2022-01-27] MEDS ORDERED: fentaNYL 25mcg/hr PATCH.TD72 TD SCH (15:15)
[2022-01-28] MEDS: GABAPENTIN 100 MG CAPSULE PO SCH ×3 (05:46→21:48)
[2022-01-28] MEDS: INSULIN SLIDING SCALE (NOVOLOG) 1 VIAL SQ SCH ×4 (06:00→21:41)
[2022-01-28] MEDS: LEVOTHYROXINE NA 88 MCG TABLET (FP) PO SCH (06:00)
[2022-01-28 08:58] LABS: HEMATOCRIT 25.7 % (32.4-45.2); HEMOGLOBIN 8.5 GM/dL (10.7-15.3); MCH 27.4 pg (25.7-33.7); MCHC 32.9 g/dl (32.0-36.0); MEAN CELL VOLUME 83.2 fl (80-96); MEAN PLT VOLUME 7.3 fl (7.5-11.1); PLATELET COUNT 341 10^3/uL (134-434); RBC 3.08 M/mm3 (3.60-5.2); WHITE BLOOD COUNT 11.2 K/mm3 (4.0-10.0)
[2022-01-28 09:24] LABS: BLOOD UREA NITROGEN 14.1 mg/dL (7-18); CALCIUM 8.7 mg/dL (8.5-10.1)
[2022-01-28 09:25] LABS: ALBUMIN 2.4 g/dl (3.4-5.0)
[2022-01-28 09:27] LABS: CREATININE 0.7 mg/dL (0.55-1.3)
[2022-01-28 09:28] LABS: BILIRUBIN,TOTAL 0.3 mg/dL (0.2-1); TOT PROT 6.6 g/dl (6.4-8.2)
[2022-01-28] MEDS: TIMOLOL 0.25% OPHTHALMIC SOL 5 ML BOTTLE OU SCH ×2 (09:45→21:41)
[2022-01-28] MEDS: amLODIPine BESYLATE 5 MG TABLET (FP) PO SCH ×2 (09:45→09:47)
[2022-01-28] MEDS: RAMIPRIL 5 MG CAPSULE PO SCH ×2 (09:45→09:47)
[2022-01-28] MEDS: oxyCODONE HCL 5 MG TABLET PO PRN (21:42)
[2022-01-29] MEDS: GABAPENTIN 100 MG CAPSULE PO SCH ×3 (05:47→21:27)
[2022-01-29] MEDS: INSULIN SLIDING SCALE (NOVOLOG) 1 VIAL SQ SCH ×4 (06:06→21:27)
[2022-01-29] MEDS: LEVOTHYROXINE NA 88 MCG TABLET (FP) PO SCH (06:42)
[2022-01-29] MEDS: TIMOLOL 0.25% OPHTHALMIC SOL 5 ML BOTTLE OU SCH ×2 (09:27→21:27)
[2022-01-29] MEDS: amLODIPine BESYLATE 5 MG TABLET (FP) PO SCH (09:27)
[2022-01-29] MEDS: RAMIPRIL 5 MG CAPSULE PO SCH (09:27)
[2022-01-29] MEDS: oxyCODONE HCL 5 MG TABLET PO PRN (09:40)
[2022-01-29] MEDS ORDERED: ONDANSETRON *ODT* 4 MG TABLET SL PRN (22:10)
[2022-01-30] MEDS: GABAPENTIN 100 MG CAPSULE PO SCH (05:11)
[2022-01-30] MEDS: LEVOTHYROXINE NA 88 MCG TABLET (FP) PO SCH (06:06)
[2022-01-30] MEDS: INSULIN SLIDING SCALE (NOVOLOG) 1 VIAL SQ SCH (06:06)
[2022-01-30 08:30] VITALS: BP 149/79; PULSE 66; TEMP 98.7
[2022-01-30] MEDS: amLODIPine BESYLATE 5 MG TABLET (FP) PO SCH (09:39)
[2022-01-30] MEDS: RAMIPRIL 5 MG CAPSULE PO SCH (09:40)
[2022-01-30] MEDS: TIMOLOL 0.25% OPHTHALMIC SOL 5 ML BOTTLE OU SCH (09:40)
[2022-01-30 11:51] LABS: BASO % 0.7 % (0-2.0); EOS % 0.3 % (0-4.5); HEMATOCRIT 27.9 % (32.4-45.2); HEMOGLOBIN 8.8 GM/dL (10.7-15.3); MCH 26.5 pg (25.7-33.7); MCHC 31.5 g/dl (32.0-36.0); MEAN PLT VOLUME 7.6 fl (7.5-11.1); MONO % 8.5 % (3.8-10.2); NEUT % 79.5 % (42.8-82.8); PLATELET COUNT 376 10^3/uL (134-434); RBC 3.32 M/mm3 (3.60-5.2); RDW 19.4 % (11.6-15.6); WHITE BLOOD COUNT 9.9 K/mm3 (4.0-10.0)
[2022-01-30 12:13] LABS: ALBUMIN 2.5 g/dl (3.4-5.0); BLOOD UREA NITROGEN 10.6 mg/dL (7-18); CALCIUM 8.6 mg/dL (8.5-10.1); MAGNESIUM 2.3 mg/dL (1.8-2.4)
[2022-01-30 12:16] LABS: CREATININE 0.7 mg/dL (0.55-1.3)
[2022-01-30 12:18] LABS: BILIRUBIN,TOTAL 0.3 mg/dL (0.2-1); TOT PROT 7.1 g/dl (6.4-8.2)
== END 2022-01-30 10:13 | disposition home health service (06) | DRG 543 ==
LOC: JER 10:35 → JERBED 17:14 → J7W 01-21 00:18
PROVIDERS: ADMIT Internal Medicine; ATTEND Internal Medicine
DX: M80.08XA Age-related osteoporosis with current pathological fracture, vertebra(e), initial encounter for fracture (principal); J90 Pleural effusion, not elsewhere classified; C34.92 Malignant neoplasm of unspecified part of left bronchus or lung; I10 Essential (primary) hypertension; E03.9 Hypothyroidism, unspecified; E11.42 Type 2 diabetes mellitus with diabetic polyneuropathy; D70.9 Neutropenia, unspecified; H40.9 Unspecified glaucoma; M85.88 Other specified disorders of bone density and structure, other site; Z85.42 Personal history of malignant neoplasm of other parts of uterus
CPT/HCPCS: 36415; 71045-TC-FY; 72128-TC; 72131-TC; 72158-TC; 72192-TC; 73700-TC-RT; 74176-TC; 80053; 81003; 82962; 83735; 84439; 84443; 85025; 85027; 87040; 87086; 94761; 97116-GP; 97162-GP; 99285-25; C9803-CS; Q0162; U0003; U0005

== ENCOUNTER 2022-01-30 08:44 | Day surgery (SDC) | payer OTHER, BC ==
[~2022-01-30 08:44] MED LIST: ATEZOLIZUMAB 1,200 MG in SODIUM CHLORIDE 250 ML IVPB ONE; CARBOPLATIN IVPB ONE; DEXAMETHASONE SODIUM PHOSPHATE 10 MG in SODIUM CHLORIDE 50 ML IVPB ONE; ETOPOSIDE IV ONE; FOSAPREPITANT DIMEGLUMINE 150 MG in SODIUM CHLORIDE 145 ML IVPB ONE; PALONOSETRON HCL 0.25 MG/5 ML VIAL IVPUSH ONE; SODIUM CHLORIDE 250 ML IV ONE; SODIUM CHLORIDE IV ONE; SODIUM CHLORIDE IVPB ONE
[2022-01-30] MEDS ORDERED: PALONOSETRON HCL 0.25 MG/5 ML VIAL IVPUSH ONE (11:00)
[2022-01-30] MEDS ORDERED: DEXAMETHASONE SODIUM PHOSPHATE 10 MG in SODIUM CHLORIDE 50 ML IVPB ONE (11:00)
[2022-01-30] MEDS ORDERED: SODIUM CHLORIDE 250 ML IV ONE (11:00)
[2022-01-30] MEDS ORDERED: FOSAPREPITANT DIMEGLUMINE 150 MG in SODIUM CHLORIDE 145 ML IVPB ONE (11:00)
[2022-01-30] MEDS ORDERED: ATEZOLIZUMAB 1,200 MG in SODIUM CHLORIDE 250 ML IVPB ONE (11:30)
[2022-01-30] MEDS ORDERED: SODIUM CHLORIDE IVPB ONE (12:30)
[2022-01-30] MEDS ORDERED: CARBOPLATIN IVPB ONE (12:30)
[2022-01-30] MEDS ORDERED: SODIUM CHLORIDE IV ONE (13:00)
[2022-01-30] MEDS ORDERED: ETOPOSIDE IV ONE (13:00)
[2022-01-30 15:36] VITALS: BP 149/79; PULSE 66; TEMP 98.7
[2022-01-30] MEDS ORDERED: PORTA CATH FLUSH 10 ML IVPUSH PRN (18:41)
== END 2022-01-30 18:48 | disposition home or self-care (01) ==
LOC: JONCCHEMO 08:44
PROVIDERS: ATTEND Internal Medicine Hematology & Oncology
DX: Z51.11 Encounter for antineoplastic chemotherapy (principal); C34.90 Malignant neoplasm of unspecified part of unspecified bronchus or lung
CPT/HCPCS: 96367; 96375; 96413; 96415; 96417; J1453; J2469; J9022

== ENCOUNTER 2022-01-31 06:48 | Day surgery (SDC) | payer OTHER, BC ==
[~2022-01-31 06:48] MED LIST changes: -ATEZOLIZUMAB 1,200 MG in SODIUM CHLORIDE 250 ML IVPB ONE; -CARBOPLATIN IVPB ONE; -FOSAPREPITANT DIMEGLUMINE 150 MG in SODIUM CHLORIDE 145 ML IVPB ONE; -PALONOSETRON HCL 0.25 MG/5 ML VIAL IVPUSH ONE; -SODIUM CHLORIDE IVPB ONE
[2022-01-31] MEDS ORDERED: SODIUM CHLORIDE 250 ML IV ONE (10:00)
[2022-01-31] MEDS ORDERED: DEXAMETHASONE SODIUM PHOSPHATE 10 MG in SODIUM CHLORIDE 50 ML IVPB ONE (10:00)
[2022-01-31] MEDS ORDERED: SODIUM CHLORIDE IV ONE (10:30)
[2022-01-31] MEDS ORDERED: ETOPOSIDE IV ONE (10:30)
[2022-01-31 15:25] VITALS: TEMP 97.8
[2022-01-31 17:48] VITALS: BP 129/54; PULSE 64
== END 2022-01-31 17:49 | disposition home or self-care (01) ==
LOC: JONCCHEMO 06:48
PROVIDERS: ATTEND Internal Medicine Hematology & Oncology
DX: Z51.11 Encounter for antineoplastic chemotherapy (principal); C34.90 Malignant neoplasm of unspecified part of unspecified bronchus or lung
CPT/HCPCS: 96367; 96413; 96415

== ENCOUNTER 2022-02-01 08:23 | Day surgery (SDC) | payer OTHER, BC ==
[~2022-02-01 08:23] MED LIST changes: +ATEZOLIZUMAB 1,200 MG in SODIUM CHLORIDE 250 ML IVPB ONE; +CARBOPLATIN IVPB ONE; +FOSAPREPITANT DIMEGLUMINE 150 MG in SODIUM CHLORIDE 145 ML IVPB ONE; +PALONOSETRON HCL 0.25 MG/5 ML VIAL IVPUSH ONE; +SODIUM CHLORIDE IVPB ONE
[2022-02-01] MEDS ORDERED: DEXAMETHASONE SODIUM PHOSPHATE 10 MG in SODIUM CHLORIDE 50 ML IVPB ONE (10:00)
[2022-02-01] MEDS ORDERED: SODIUM CHLORIDE 250 ML IV ONE (10:00)
[2022-02-01] MEDS ORDERED: ETOPOSIDE 150 MG in SODIUM CHLORIDE 0.9% 500 ML IV ONE (10:30)
[2022-02-01] MEDS ORDERED: PEGFILGRASTIM (NEULASTA ONPRO) 6 MG/0.6 ML KIT SQ ONE (12:30)
[2022-02-01] MEDS ORDERED: PORTA CATH FLUSH 10 ML IVPUSH PRN (17:31)
[2022-02-01 17:32] VITALS: BP 132/56; PULSE 95; TEMP 97.6
== END 2022-02-01 17:15 | disposition home or self-care (01) ==
LOC: JONCCHEMO 08:23
PROVIDERS: ATTEND Internal Medicine Hematology & Oncology
PROC: 3E04305 Introduction of Other Antineoplastic into Central Vein, Percutaneous Approach (ICD-10-PCS; principal; 2022-02-01)
PROC: 3E013GC Introduction of Other Therapeutic Substance into Subcutaneous Tissue, Percutaneous Approach (ICD-10-PCS; 2022-02-01)
DX: Z51.11 Encounter for antineoplastic chemotherapy (principal); C34.90 Malignant neoplasm of unspecified part of unspecified bronchus or lung
CPT/HCPCS: 96372; 96375; 96413; 96415; J2506

== ENCOUNTER 2022-02-06 10:24 | Day surgery (SDC) | payer OTHER, BC ==
[~2022-02-06 10:24] MED LIST changes: -ATEZOLIZUMAB 1,200 MG in SODIUM CHLORIDE 250 ML IVPB ONE; -CARBOPLATIN IVPB ONE; -DEXAMETHASONE SODIUM PHOSPHATE 10 MG in SODIUM CHLORIDE 50 ML IVPB ONE; -ETOPOSIDE IV ONE; -FOSAPREPITANT DIMEGLUMINE 150 MG in SODIUM CHLORIDE 145 ML IVPB ONE; -PALONOSETRON HCL 0.25 MG/5 ML VIAL IVPUSH ONE; -SODIUM CHLORIDE 250 ML IV ONE; +SODIUM CHLORIDE 250 ML IV SCH; -SODIUM CHLORIDE IV ONE; -SODIUM CHLORIDE IVPB ONE
[2022-02-06] MEDS ORDERED: SODIUM CHLORIDE 150 ML IV SCH (10:30)
[2022-02-06] MEDS ORDERED: SODIUM CHLORIDE 100 ML IV SCH (10:30)
[2022-02-06 11:29] LABS: HEMATOCRIT 23.2 % (32.4-45.2); HEMOGLOBIN 7.6 GM/dL (10.7-15.3); MCH 27.1 pg (25.7-33.7); MCHC 32.6 g/dl (32.0-36.0); MEAN CELL VOLUME 83.2 fl (80-96); MEAN PLT VOLUME 8.3 fl (7.5-11.1); PLATELET COUNT 140 10^3/uL (134-434); RBC 2.79 M/mm3 (3.60-5.2); RDW 20.5 % (11.6-15.6); WHITE BLOOD COUNT 14.1 K/mm3 (4.0-10.0)
[2022-02-06 11:44] LABS: PROTHROMBIN TIME (PATIENT) 11.5 SEC (9.7-13.0)
[2022-02-06 11:47] LABS: ACTIVATED PTT 29.2 SECONDS (25.2-36.5)
[2022-02-06 11:52] LABS: CHLORIDE 97 mmol/L (98-107); SODIUM 134 mmol/L (136-145)
[2022-02-06 11:55] LABS: ALBUMIN 2.5 g/dl (3.4-5.0); ANION GAP 9 MMOL/L (8-16); CALCIUM 8.3 mg/dL (8.5-10.1); CO2 29 mmol/L (21-32); GLUCOSE,RANDOM 208 mg/dL (74-106)
[2022-02-06 11:58] LABS: CREATININE 0.6 mg/dL (0.55-1.3); IRON SERUM 131 ug/dL (50-175); SGOT/AST 32 U/L (15-37); SGPT/ALT 14 U/L (13-61); TOTAL IRON BINDING CAPACITY 230 ug/dL (250-450)
[2022-02-06 11:59] LABS: TOT PROT 6.6 g/dl (6.4-8.2)
[2022-02-06 12:00] LABS: BILIRUBIN,TOTAL 0.7 mg/dL (0.2-1)
[2022-02-06 12:31] LABS: ALK PHOS 154 U/L (45-117)
[2022-02-06 12:40] LABS: ANISOCYTOSIS 0; MACROCYTOSIS 0
[2022-02-06] MEDS ORDERED: PORTA CATH FLUSH 10 ML IVPUSH PRN (16:58)
[2022-02-06 17:00] VITALS: BP 166/66; PULSE 79; TEMP 98.7
== END 2022-02-06 17:00 | disposition home or self-care (01) ==
LOC: JONCBLOOD 10:24
PROVIDERS: ATTEND Internal Medicine Hematology & Oncology
PROC: 30233H1 Transfusion of Nonautologous Whole Blood into Peripheral Vein, Percutaneous Approach (ICD-10-PCS; principal; 2022-02-06)
DX: D64.9 Anemia, unspecified (principal); C34.90 Malignant neoplasm of unspecified part of unspecified bronchus or lung
CPT/HCPCS: 36415; 36430; 80053; 82607; 82728; 83540; 83550; 83735; 85025; 85610; 85730; 86850; 86900; 86901; 86922; P9058

== ENCOUNTER 2022-02-23 04:10 | Day surgery (SDC) | payer OTHER, BC ==
[2022-02-21 15:25] VITALS: BMI 19.7
[2022-02-23] MEDS ORDERED: FENTANYL CITRATE/PF 50 MCG/ML VIAL ONE (07:10)
[2022-02-23] MEDS ORDERED: MIDAZOLAM HCL 2 MG/2 ML SINGLE DOSE VIAL ONE (07:10)
[2022-02-23] MEDS ORDERED: SUCCINYLCHOLINE CHLORIDE 200 MG/10 ML SYRINGE ONE (07:16)
[2022-02-23] MEDS ORDERED: methylPREDNISolone ACET (DEPO) 80 MG/1 ML VIAL ONE (07:29)
[2022-02-23] MEDS ORDERED: BUPIVACAINE HCL/PF 0.25% (2.5MG/ML) 10 ML VIAL ONE (07:29)
[2022-02-23] MEDS ORDERED: LIDOCAINE HCL 1%, 10 MG/ML (20ML VIAL) NR ONE (07:49)
[2022-02-23] MEDS ORDERED: BUPIVACAINE HCL/PF 0.25% (2.5MG/ML) 10 ML VIAL IJ ONE (07:49)
[2022-02-23] MEDS ORDERED: methylPREDNISolone ACET (DEPO) 80 MG/1 ML VIAL IM ONE (07:50)
[2022-02-23] MEDS ORDERED: oxyCODONE HCL 5 MG TABLET PO PRN (08:03)
[2022-02-23] MEDS ORDERED: ONDANSETRON 4 MG/2 ML VIAL IVPUSH PRN (08:03)
[2022-02-23] MEDS ORDERED: LACTATED RINGERS SOLUTION 1,000 ML IV SCH (08:15)
[2022-02-23 08:27] VITALS: PULSE 74
[2022-02-23 10:10] VITALS: BP 145/55; TEMP 97.5
== END 2022-02-23 10:10 | disposition home or self-care (01) ==
LOC: JASU-SURG 04:10
PROVIDERS: ATTEND Neurological Surgery
PROC: 3E0R3BZ Introduction of Anesthetic Agent into Spinal Canal, Percutaneous Approach (ICD-10-PCS; 2022-02-23)
PROC: B01BYZZ Fluoroscopy of Spinal Cord using Other Contrast (ICD-10-PCS; 2022-02-23)
PROC: 3E0R33Z Introduction of Anti-inflammatory into Spinal Canal, Percutaneous Approach (ICD-10-PCS; principal; 2022-02-23 07:30)
DX: S32.039S Unspecified fracture of third lumbar vertebra, sequela (principal); X58.XXXS Exposure to other specified factors, sequela; M54.16 Radiculopathy, lumbar region
CPT/HCPCS: 76000-TC-FY; 82962

== ENCOUNTER 2022-02-24 08:05 | Day surgery (SDC) | payer OTHER, BC ==
[2022-02-24 10:49] VITALS: TEMP 98.4
[2022-02-24] MEDS ORDERED: MAGNESIUM SULF 50% (8.12 MEQ/2 ML-1 GM VIAL) IVPB ONE (11:00)
[2022-02-24] MEDS ORDERED: SODIUM CHLORIDE 250 ML IV ONE (11:30)
[2022-02-24] MEDS ORDERED: PALONOSETRON HCL 0.25 MG/5 ML VIAL IVPUSH ONE (12:00)
[2022-02-24] MEDS ORDERED: DEXAMETHASONE SODIUM PHOSPHATE 10 MG in SODIUM CHLORIDE 50 ML IVPB ONE (12:00)
[2022-02-24] MEDS ORDERED: FOSAPREPITANT DIMEGLUMINE 150 MG in SODIUM CHLORIDE 145 ML IVPB ONE (12:15)
[2022-02-24] MEDS ORDERED: ATEZOLIZUMAB 1,200 MG in SODIUM CHLORIDE 250 ML IV ONE (12:45)
[2022-02-24] MEDS ORDERED: CARBOPLATIN IVPB ONE (13:15)
[2022-02-24] MEDS ORDERED: SODIUM CHLORIDE IVPB ONE (13:15)
[2022-02-24] MEDS ORDERED: PEGFILGRASTIM (NEULASTA ONPRO) 6 MG/0.6 ML KIT SQ ONE (14:45)
[2022-02-24] MEDS ORDERED: PORTA CATH FLUSH 10 ML IVPUSH PRN (15:45)
[2022-02-24 16:00] VITALS: BP 146/53; PULSE 73
== END 2022-02-24 15:45 | disposition home or self-care (01) ==
LOC: JONCCHEMO 08:05
PROVIDERS: ATTEND Internal Medicine Hematology & Oncology
PROC: 3E04305 Introduction of Other Antineoplastic into Central Vein, Percutaneous Approach (ICD-10-PCS; principal; 2022-02-24)
PROC: 3E043GC Introduction of Other Therapeutic Substance into Central Vein, Percutaneous Approach (ICD-10-PCS; 2022-02-24)
PROC: 3E0437Z Introduction of Electrolytic and Water Balance Substance into Central Vein, Percutaneous Approach (ICD-10-PCS; 2022-02-24)
DX: Z51.11 Encounter for antineoplastic chemotherapy (principal); C34.90 Malignant neoplasm of unspecified part of unspecified bronchus or lung
CPT/HCPCS: 96361; 96367; 96372; 96375; 96413; 96417; J1453; J2469; J2506; J9022

== ENCOUNTER 2022-03-17 08:46 | Day surgery (SDC) | payer OTHER, BC ==
[2022-03-17] MEDS ORDERED: DEXAMETHASONE INJECTION 10 MG in SODIUM CHLORIDE 50 ML IVPB ONE (10:00)
[2022-03-17] MEDS ORDERED: PALONOSETRON HCL 0.25 MG/5 ML VIAL IVPUSH ONE (10:00)
[2022-03-17] MEDS ORDERED: FOSAPREPITANT DIMEGLUMINE 150 MG in SODIUM CHLORIDE 150 ML IVPB ONE (10:00)
[2022-03-17] MEDS ORDERED: SODIUM CHLORIDE 250 ML IV ONE (10:00)
[2022-03-17] MEDS ORDERED: SODIUM CHLORIDE IVPB ONE (10:30)
[2022-03-17] MEDS ORDERED: ATEZOLIZUMAB 1,200 MG in SODIUM CHLORIDE 250 ML IV ONE (10:30)
[2022-03-17] MEDS ORDERED: CARBOPLATIN IVPB ONE (10:30)
[2022-03-17 11:09] LABS: HEMATOCRIT 24.2 % (32.4-45.2); HEMOGLOBIN 7.9 GM/dL (10.7-15.3); MCH 29.9 pg (25.7-33.7); MCHC 32.4 g/dl (32.0-36.0); MEAN CELL VOLUME 92.1 fl (80-96); MEAN PLT VOLUME 8.5 fl (7.5-11.1); PLATELET COUNT 137 10^3/uL (134-434); RBC 2.63 M/mm3 (3.60-5.2); RDW 21.4 % (11.6-15.6); WHITE BLOOD COUNT 13.7 K/mm3 (4.0-10.0)
[2022-03-17] MEDS ORDERED: DEXAMETHASONE SOD PHOSPHATE 4 MG/1 ML VIAL IVPB ONE (11:16)
[2022-03-17 11:35] LABS: ALBUMIN 3.1 g/dl (3.4-5.0); CALCIUM 9.3 mg/dL (8.5-10.1)
[2022-03-17 11:36] LABS: BLOOD UREA NITROGEN 10.5 mg/dL (7-18)
[2022-03-17 11:39] LABS: CREATININE 0.7 mg/dL (0.55-1.3)
[2022-03-17 11:40] LABS: BILIRUBIN,TOTAL 0.6 mg/dL (0.2-1); TOT PROT 7.8 g/dl (6.4-8.2)
[2022-03-17 11:50] LABS: ANISOCYTOSIS 1+; MACROCYTOSIS 0
[2022-03-17] MEDS: PORTA CATH FLUSH 10 ML IVPUSH PRN ×2 (12:00→16:00)
[2022-03-17] MEDS ORDERED: DEXAMETHASONE INJECTION 4 MG in SODIUM CHLORIDE 50 ML IVPUSH ONE (12:00)
[2022-03-17 12:25] VITALS: TEMP 98.8
[2022-03-17 15:51] VITALS: BP 127/64; PULSE 82
== END 2022-03-17 16:00 | disposition home or self-care (01) ==
LOC: JONCCHEMO 08:46
PROVIDERS: ATTEND Internal Medicine Hematology & Oncology
DX: Z51.11 Encounter for antineoplastic chemotherapy (principal); C34.90 Malignant neoplasm of unspecified part of unspecified bronchus or lung
CPT/HCPCS: 36415; 80053; 84439; 84443; 85025; 96375; 96413; J9022

== ENCOUNTER 2022-04-12 08:31 | Day surgery (SDC) | payer OTHER, BC ==
[2022-04-12] MEDS ORDERED: SODIUM CHLORIDE 250 ML IV ONE (12:00)
[2022-04-12] MEDS ORDERED: PALONOSETRON HCL 0.25 MG/5 ML VIAL IVPUSH ONE (12:30)
[2022-04-12] MEDS ORDERED: DEXAMETHASONE INJECTION 10 MG, DIPHENHYDRAMINE 25 MG in SODIUM CHLORIDE 100 ML IVPB ONE (12:30)
[2022-04-12] MEDS ORDERED: FAMOTIDINE 20 MG/50 ML IVPB 20 MG/50 ML MG IVPB ONE (12:30)
[2022-04-12 12:31] VITALS: TEMP 98.2
[2022-04-12] MEDS ORDERED: PACLITAXEL 114 MG in SODIUM CHLORIDE 250 ML IVPB ONE (13:00)
[2022-04-12] MEDS ORDERED: PORTA CATH FLUSH 10 ML IVPUSH PRN (17:01)
[2022-04-12 18:28] VITALS: BP 135/64; PULSE 69
== END 2022-04-12 16:15 | disposition home or self-care (01) ==
LOC: JONCCHEMO 08:31
PROVIDERS: ATTEND Internal Medicine Hematology & Oncology
DX: Z51.11 Encounter for antineoplastic chemotherapy (principal); C34.90 Malignant neoplasm of unspecified part of unspecified bronchus or lung
CPT/HCPCS: 82962; 96367; 96375; 96413; J1100; J2469

== ENCOUNTER 2022-04-19 07:50 | Day surgery (SDC) | payer OTHER, BC ==
[2022-04-19] MEDS ORDERED: SODIUM CHLORIDE 250 ML IV ONE (09:00)
[2022-04-19] MEDS ORDERED: FAMOTIDINE 20 MG/50 ML IVPB 20 MG/50 ML MG IVPB ONE (09:30)
[2022-04-19] MEDS ORDERED: PALONOSETRON HCL 0.25 MG/5 ML VIAL IVPUSH ONE (09:30)
[2022-04-19] MEDS ORDERED: DEXAMETHASONE INJECTION 10 MG, DIPHENHYDRAMINE 25 MG in SODIUM CHLORIDE 100 ML IVPB ONE (09:30)
[2022-04-19] MEDS ORDERED: PACLITAXEL 114 MG in SODIUM CHLORIDE 250 ML IVPB ONE (10:00)
[2022-04-19 10:36] LABS: BASO % 0.7 % (0-2.0); EOS % 1.8 % (0-4.5); HEMATOCRIT 23.6 % (32.4-45.2); HEMOGLOBIN 7.7 GM/dL (10.7-15.3); LYMPH % 15.1 % (8-40); MCH 28.2 pg (25.7-33.7); MCHC 32.5 g/dl (32.0-36.0); MEAN CELL VOLUME 86.8 fl (80-96); MEAN PLT VOLUME 7.3 fl (7.5-11.1); MONO % 3.9 % (3.8-10.2); NEUT % 78.5 % (42.8-82.8); PLATELET COUNT 207 10^3/uL (134-434); RBC 2.72 M/mm3 (3.60-5.2); RDW 18.8 % (11.6-15.6); WHITE BLOOD COUNT 5.2 K/mm3 (4.0-10.0)
[2022-04-19 11:18] LABS: BLOOD UREA NITROGEN 15.9 mg/dL (7-18)
[2022-04-19 11:19] LABS: MAGNESIUM 1.8 mg/dL (1.8-2.4)
[2022-04-19 11:21] LABS: CREATININE 0.8 mg/dL (0.55-1.3)
[2022-04-19 11:23] LABS: BILIRUBIN,TOTAL 0.4 mg/dL (0.2-1); TOT PROT 8.1 g/dl (6.4-8.2)
[2022-04-19] MEDS ORDERED: PORTA CATH FLUSH 10 ML IVPUSH PRN (15:53)
[2022-04-19 19:03] VITALS: BP 170/71; PULSE 71
[2022-04-19 19:04] VITALS: TEMP 97.8
== END 2022-04-19 19:04 | disposition home or self-care (01) ==
LOC: JONCCHEMO 07:50
PROVIDERS: ATTEND Internal Medicine Hematology & Oncology
DX: Z51.11 Encounter for antineoplastic chemotherapy (principal)
CPT/HCPCS: 36415; 36430; 80053; 82533; 83735; 84439; 84443; 85025; 86850; 86900; 86901; 86922; 96367; 96413; J1100; J2469; P9058

== ENCOUNTER 2022-04-26 06:39 | Day surgery (SDC) | payer OTHER, BC ==
[2022-04-26] MEDS ORDERED: SODIUM CHLORIDE 250 ML IV ONE (09:00)
[2022-04-26] MEDS ORDERED: FAMOTIDINE 20 MG/50 ML IVPB 20 MG/50 ML MG IVPB ONE (09:30)
[2022-04-26] MEDS ORDERED: DEXAMETHASONE INJECTION 10 MG, DIPHENHYDRAMINE 25 MG in SODIUM CHLORIDE 100 ML IVPB ONE (09:30)
[2022-04-26] MEDS ORDERED: PALONOSETRON HCL 0.25 MG/5 ML VIAL IVPUSH ONE (09:30)
[2022-04-26] MEDS ORDERED: PACLITAXEL 114 MG in SODIUM CHLORIDE 250 ML IVPB ONE (10:00)
[2022-04-26 11:25] LABS: BASO % 0.9 % (0-2.0); HEMATOCRIT 27.1 % (32.4-45.2); HEMOGLOBIN 8.8 GM/dL (10.7-15.3); LYMPH % 30.3 % (8-40); MCH 28.4 pg (25.7-33.7); MCHC 32.6 g/dl (32.0-36.0); MEAN CELL VOLUME 87.3 fl (80-96); MEAN PLT VOLUME 7.7 fl (7.5-11.1); MONO % 9.6 % (3.8-10.2); NEUT % 56.2 % (42.8-82.8); PLATELET COUNT 156 10^3/uL (134-434); RBC 3.11 M/mm3 (3.60-5.2); RDW 17.9 % (11.6-15.6)
[2022-04-26 11:49] LABS: BLOOD UREA NITROGEN 14.5 mg/dL (7-18)
[2022-04-26 11:52] LABS: CREATININE 0.8 mg/dL (0.55-1.3)
[2022-04-26 11:54] LABS: BILIRUBIN,TOTAL 0.5 mg/dL (0.2-1); TOT PROT 7.6 g/dl (6.4-8.2)
== END 2022-04-26 12:30 | disposition home or self-care (01) ==
LOC: JONCCHEMO 06:39
PROVIDERS: ATTEND Internal Medicine Hematology & Oncology
DX: Z53.8 Procedure and treatment not carried out for other reasons (principal)
CPT/HCPCS: 36415; 80053; 85025; 96365

== ENCOUNTER 2022-05-03 06:50 | Day surgery (SDC) | payer OTHER, BC ==
[2022-05-03] MEDS ORDERED: DEXAMETHASONE SODIUM PHOSPHATE 10 MG, DIPHENHYDRAMINE 25 MG in SODIUM CHLORIDE 100 ML IVPB ONE (10:00)
[2022-05-03] MEDS ORDERED: FAMOTIDINE 20 MG/50 ML IVPB 20 MG/50 ML MG IVPB ONE (10:00)
[2022-05-03] MEDS ORDERED: SODIUM CHLORIDE 250 ML IV ONE (10:00)
[2022-05-03] MEDS ORDERED: PALONOSETRON HCL 0.25 MG/5 ML VIAL IVPUSH ONE (10:00)
[2022-05-03] MEDS ORDERED: PACLITAXEL 114 MG in SODIUM CHLORIDE 250 ML IVPB ONE (10:30)
[2022-05-03 11:08] LABS: BASO % 0.6 % (0-2.0); EOS % 0.6 % (0-4.5); HEMATOCRIT 24.9 % (32.4-45.2); HEMOGLOBIN 8.2 GM/dL (10.7-15.3); LYMPH % 12.9 % (8-40); MCH 27.9 pg (25.7-33.7); MCHC 33.1 g/dl (32.0-36.0); MEAN CELL VOLUME 84.2 fl (80-96); MEAN PLT VOLUME 7.4 fl (7.5-11.1); MONO % 11.5 % (3.8-10.2); NEUT % 74.4 % (42.8-82.8); PLATELET COUNT 209 10^3/uL (134-434); RBC 2.96 M/mm3 (3.60-5.2); RDW 18.1 % (11.6-15.6); WHITE BLOOD COUNT 4.3 K/mm3 (4.0-10.0)
[2022-05-03 11:42] LABS: BLOOD UREA NITROGEN 15.6 mg/dL (7-18); CALCIUM 9.4 mg/dL (8.5-10.1)
[2022-05-03 11:44] LABS: MAGNESIUM 1.7 mg/dL (1.8-2.4)
[2022-05-03 11:45] LABS: CREATININE 0.9 mg/dL (0.55-1.3)
[2022-05-03 11:47] LABS: BILIRUBIN,TOTAL 0.5 mg/dL (0.2-1); TOT PROT 7.4 g/dl (6.4-8.2)
[2022-05-03] MEDS ORDERED: MAGNESIUM 2GM/50ML STERILE WATER IVPB IVPB ONE (12:34)
[2022-05-03 15:33] VITALS: TEMP 98.3
[2022-05-03 15:37] VITALS: BP 134/55; PULSE 94; RESP 20
[2022-05-03] MEDS ORDERED: PORTA CATH FLUSH 10 ML IVPUSH PRN (15:37)
== END 2022-05-03 15:38 | disposition home or self-care (01) ==
LOC: JONCCHEMO 06:50
PROVIDERS: ATTEND Internal Medicine Hematology & Oncology
DX: Z51.11 Encounter for antineoplastic chemotherapy (principal); C34.90 Malignant neoplasm of unspecified part of unspecified bronchus or lung
CPT/HCPCS: 36415; 80053; 83036; 83735; 84439; 84443; 85025; 96367; 96375; 96413; J2469

== ENCOUNTER 2022-05-10 07:00 | Day surgery (SDC) | payer OTHER, BC ==
[2022-05-10] MEDS ORDERED: SODIUM CHLORIDE 250 ML IV ONE (10:00)
[2022-05-10] MEDS ORDERED: PALONOSETRON HCL 0.25 MG/5 ML VIAL IVPUSH ONE (10:00)
[2022-05-10] MEDS ORDERED: FAMOTIDINE 20 MG/50 ML IVPB 20 MG/50 ML MG IVPB ONE (10:00)
[2022-05-10] MEDS ORDERED: DEXAMETHASONE SODIUM PHOSPHATE 10 MG, DIPHENHYDRAMINE 25 MG in SODIUM CHLORIDE 100 ML IVPB ONE ×2 (10:00→10:45)
[2022-05-10 10:21] LABS: BASO % 0.7 % (0-2.0); HEMATOCRIT 24.7 % (32.4-45.2); HEMOGLOBIN 8.1 GM/dL (10.7-15.3); LYMPH % 11.2 % (8-40); MCH 27.3 pg (25.7-33.7); MCHC 32.6 g/dl (32.0-36.0); MEAN CELL VOLUME 83.6 fl (80-96); MEAN PLT VOLUME 7.6 fl (7.5-11.1); MONO % 6.5 % (3.8-10.2); NEUT % 80.6 % (42.8-82.8); PLATELET COUNT 203 10^3/uL (134-434); RBC 2.95 M/mm3 (3.60-5.2); RDW 18.5 % (11.6-15.6); WHITE BLOOD COUNT 3.6 K/mm3 (4.0-10.0)
[2022-05-10] MEDS ORDERED: PACLITAXEL 114 MG in SODIUM CHLORIDE 250 ML IVPB ONE (10:30)
[2022-05-10 10:38] LABS: ALBUMIN 2.7 g/dl (3.4-5.0); CALCIUM 9.2 mg/dL (8.5-10.1)
[2022-05-10 10:40] LABS: BLOOD UREA NITROGEN 16.9 mg/dL (7-18)
[2022-05-10 10:43] LABS: TOT PROT 7.2 g/dl (6.4-8.2)
[2022-05-10 10:51] LABS: BILIRUBIN,TOTAL 0.6 mg/dL (0.2-1)
[2022-05-10] MEDS ORDERED: PACLITAXEL 84 MG in SODIUM CHLORIDE 250 ML IVPB ONE (12:00)
[2022-05-10] MEDS ORDERED: PORTA CATH FLUSH 10 ML IVPUSH PRN (15:29)
[2022-05-10 15:30] VITALS: TEMP 97.6
[2022-05-10 15:31] VITALS: BP 115/47; PULSE 91; RESP 16
== END 2022-05-10 14:30 | disposition home or self-care (01) ==
LOC: JONCCHEMO 07:00
PROVIDERS: ATTEND Internal Medicine Hematology & Oncology
DX: Z51.11 Encounter for antineoplastic chemotherapy (principal); C34.90 Malignant neoplasm of unspecified part of unspecified bronchus or lung
CPT/HCPCS: 36415; 80053; 85025; 96367; 96375; 96413; J2469

== ENCOUNTER 2022-05-17 06:47 | Day surgery (SDC) | payer OTHER, BC ==
[2022-05-17] MEDS ORDERED: SODIUM CHLORIDE 250 ML IV ONE (10:00)
[2022-05-17] MEDS ORDERED: DEXAMETHASONE SODIUM PHOSPHATE 10 MG, DIPHENHYDRAMINE 25 MG in SODIUM CHLORIDE 100 ML IVPB ONE (10:00)
[2022-05-17] MEDS ORDERED: FAMOTIDINE 20 MG/50 ML IVPB 20 MG/50 ML MG IVPB ONE (10:00)
[2022-05-17] MEDS ORDERED: PALONOSETRON HCL 0.25 MG/5 ML VIAL IVPUSH ONE (10:00)
[2022-05-17] MEDS ORDERED: FENTANYL PATCH WASTE TD PRN (10:26)
[2022-05-17 10:28] LABS: BASO % 0.9 % (0-2.0); EOS % 2.7 % (0-4.5); HEMATOCRIT 23.4 % (32.4-45.2); HEMOGLOBIN 7.8 GM/dL (10.7-15.3); LYMPH % 21.9 % (8-40); MCH 27.7 pg (25.7-33.7); MCHC 33.3 g/dl (32.0-36.0); MEAN PLT VOLUME 7.6 fl (7.5-11.1); MONO % 13.1 % (3.8-10.2); NEUT % 61.4 % (42.8-82.8); PLATELET COUNT 237 10^3/uL (134-434); RBC 2.82 M/mm3 (3.60-5.2); RDW 19.2 % (11.6-15.6); WHITE BLOOD COUNT 2.1 K/mm3 (4.0-10.0)
[2022-05-17] MEDS ORDERED: fentaNYL 25mcg/hr PATCH.TD72 TD ONE (10:30)
[2022-05-17] MEDS ORDERED: PACLITAXEL 114 MG in SODIUM CHLORIDE 250 ML IVPB ONE (10:30)
[2022-05-17 10:58] LABS: CALCIUM 8.7 mg/dL (8.5-10.1)
[2022-05-17 10:59] LABS: ALBUMIN 2.7 g/dl (3.4-5.0); BLOOD UREA NITROGEN 12.6 mg/dL (7-18)
[2022-05-17] MEDS ORDERED: PACLITAXEL 84 MG in SODIUM CHLORIDE 250 ML IVPB ONE (11:00)
[2022-05-17 11:01] LABS: CREATININE 0.8 mg/dL (0.55-1.3)
[2022-05-17 11:03] LABS: BILIRUBIN,TOTAL 0.4 mg/dL (0.2-1); TOT PROT 7.1 g/dl (6.4-8.2)
[2022-05-17 17:11] VITALS: RESP 20; TEMP 98.3
[2022-05-17 17:29] VITALS: BP 120/52; PULSE 95
[2022-05-17] MEDS ORDERED: PORTA CATH FLUSH 10 ML IVPUSH PRN (17:29)
== END 2022-05-17 14:30 | disposition home or self-care (01) ==
LOC: JONCCHEMO 06:47
PROVIDERS: ATTEND Internal Medicine Hematology & Oncology
DX: Z51.11 Encounter for antineoplastic chemotherapy (principal); C34.90 Malignant neoplasm of unspecified part of unspecified bronchus or lung
CPT/HCPCS: 36415; 80053; 85025; 96367; 96375; 96413; J2469

== ENCOUNTER 2022-05-29 07:19 | Day surgery (SDC) | payer OTHER, BC ==
[2022-05-29] MEDS ORDERED: SODIUM CHLORIDE 250 ML IV ONE (09:00)
[2022-05-29] MEDS ORDERED: DEXAMETHASONE SODIUM PHOSPHATE 10 MG, DIPHENHYDRAMINE 25 MG in SODIUM CHLORIDE 100 ML IVPB ONE (09:30)
[2022-05-29] MEDS ORDERED: PALONOSETRON HCL 0.25 MG/5 ML VIAL IVPUSH ONE (09:30)
[2022-05-29] MEDS ORDERED: FAMOTIDINE 20 MG/50 ML IVPB 20 MG/50 ML MG IVPB ONE (09:30)
[2022-05-29 09:43] LABS: BASO % 0.5 % (0-2.0); EOS % 0.4 % (0-4.5); HEMATOCRIT 22.2 % (32.4-45.2); HEMOGLOBIN 7.3 GM/dL (10.7-15.3); LYMPH % 13.4 % (8-40); MCH 27.3 pg (25.7-33.7); MCHC 32.7 g/dl (32.0-36.0); MEAN CELL VOLUME 83.4 fl (80-96); MEAN PLT VOLUME 6.9 fl (7.5-11.1); MONO % 13.5 % (3.8-10.2); NEUT % 72.2 % (42.8-82.8); PLATELET COUNT 238 10^3/uL (134-434); RBC 2.67 M/mm3 (3.60-5.2); RDW 20.4 % (11.6-15.6); WHITE BLOOD COUNT 4.9 K/mm3 (4.0-10.0)
[2022-05-29] MEDS ORDERED: PORTA CATH FLUSH 10 ML IVPUSH PRN (09:59)
[2022-05-29] MEDS ORDERED: PACLITAXEL 84 MG in SODIUM CHLORIDE 250 ML IVPB ONE (10:00)
[2022-05-29 10:01] LABS: BLOOD UREA NITROGEN 11.8 mg/dL (7-18); CALCIUM 9.3 mg/dL (8.5-10.1)
[2022-05-29 10:03] LABS: ALBUMIN 2.7 g/dl (3.4-5.0); MAGNESIUM 1.7 mg/dL (1.8-2.4)
[2022-05-29 10:05] LABS: BILIRUBIN,DIRECT 0.2 mg/dL (0.0-0.2); CHOLESTEROL 166 mg/dL (50-200); CREATININE 0.7 mg/dL (0.55-1.3); TRIGLYCERIDES 99 mg/dL (0-150)
[2022-05-29 10:07] LABS: BILIRUBIN,TOTAL 0.4 mg/dL (0.2-1); LDL CHOLESTEROL (ONLY SJRH) 100 mg/dL (5-100); TOT PROT 6.7 g/dl (6.4-8.2)
[2022-05-29 10:08] LABS: HDL CHOLESTEROL 52 mg/dL (40-60)
[2022-05-29] MEDS ORDERED: INSULIN (NOVOLOG) ASPART 100 UNITS/ML 10ML VIAL SQ ONE (10:28)
[2022-05-29 14:51] VITALS: RESP 18
[2022-05-29 17:19] VITALS: BP 151/71; PULSE 71; TEMP 97.9
== END 2022-05-29 17:27 | disposition home or self-care (01) ==
LOC: JONCCHEMO 07:19
PROVIDERS: ATTEND Internal Medicine Hematology & Oncology
PROC: 3E04305 Introduction of Other Antineoplastic into Central Vein, Percutaneous Approach (ICD-10-PCS; principal; 2022-05-29)
PROC: 30233H1 Transfusion of Nonautologous Whole Blood into Peripheral Vein, Percutaneous Approach (ICD-10-PCS; 2022-05-29)
DX: Z51.11 Encounter for antineoplastic chemotherapy (principal); C34.90 Malignant neoplasm of unspecified part of unspecified bronchus or lung
CPT/HCPCS: 36415; 36430; 80048; 80061; 80076; 82378; 83036; 83735; 85025; 86850; 86900; 86901; 86922; 96367; 96375; 96413; J2469; P9058

== ENCOUNTER 2022-06-12 07:21 | Day surgery (SDC) | payer OTHER, BC ==
[2022-06-12] MEDS ORDERED: SODIUM CHLORIDE 250 ML IV ONE (09:00)
[2022-06-12] MEDS ORDERED: MAGNESIUM 2GM/50ML STERILE WATER IVPB IVPB ONE (09:08)
[2022-06-12] MEDS ORDERED: DEXAMETHASONE SODIUM PHOSPHATE 8 MG, DIPHENHYDRAMINE 25 MG in SODIUM CHLORIDE 100 ML IVPB ONE (09:30)
[2022-06-12] MEDS ORDERED: FAMOTIDINE 20 MG/50 ML IVPB 20 MG/50 ML MG IVPB ONE (09:30)
[2022-06-12] MEDS ORDERED: PALONOSETRON HCL 0.25 MG/5 ML VIAL IVPUSH ONE (09:30)
[2022-06-12] MEDS ORDERED: PACLITAXEL 84 MG in SODIUM CHLORIDE 250 ML IVPB ONE (10:00)
[2022-06-12 10:45] LABS: BASO % 0.7 % (0-2.0); EOS % 0.9 % (0-4.5); HEMATOCRIT 28.3 % (32.4-45.2); HEMOGLOBIN 9.2 GM/dL (10.7-15.3); LYMPH % 19.2 % (8-40); MCH 27.6 pg (25.7-33.7); MCHC 32.4 g/dl (32.0-36.0); MEAN CELL VOLUME 85.2 fl (80-96); MEAN PLT VOLUME 7.1 fl (7.5-11.1); MONO % 10.5 % (3.8-10.2); NEUT % 68.7 % (42.8-82.8); PLATELET COUNT 195 10^3/uL (134-434); RBC 3.32 M/mm3 (3.60-5.2); RDW 20.3 % (11.6-15.6); WHITE BLOOD COUNT 4.7 K/mm3 (4.0-10.0)
[2022-06-12 11:09] LABS: BLOOD UREA NITROGEN 14.8 mg/dL (7-18); MAGNESIUM 1.7 mg/dL (1.8-2.4)
[2022-06-12 11:11] LABS: BILIRUBIN,DIRECT 0.1 mg/dL (0.0-0.2)
[2022-06-12 11:12] LABS: CREATININE 0.9 mg/dL (0.55-1.3)
[2022-06-12 11:13] LABS: BILIRUBIN,TOTAL 0.2 mg/dL (0.2-1)
[2022-06-12 11:14] LABS: TOT PROT 6.9 g/dl (6.4-8.2)
[2022-06-12] MEDS ORDERED: INSULIN (NOVOLOG) ASPART 100 UNITS/ML 10ML VIAL SQ ONE (11:15)
[2022-06-12 12:08] VITALS: RESP 20; TEMP 98.1
[2022-06-12] MEDS ORDERED: PORTA CATH FLUSH 10 ML IVPUSH PRN (12:16)
[2022-06-12 16:27] VITALS: BP 154/63; PULSE 92
== END 2022-06-12 15:50 | disposition home or self-care (01) ==
LOC: JONCCHEMO 07:21
PROVIDERS: ATTEND Internal Medicine Hematology & Oncology
DX: Z51.11 Encounter for antineoplastic chemotherapy (principal); C34.90 Malignant neoplasm of unspecified part of unspecified bronchus or lung
CPT/HCPCS: 36415; 80048; 80076; 83735; 85025; 93970-TC; 96367; 96375; 96413; J2469

== ENCOUNTER 2022-06-19 07:59 | Day surgery (SDC) | payer OTHER, BC ==
[2022-06-19] MEDS ORDERED: SODIUM CHLORIDE 250 ML IV ONE (09:00)
[2022-06-19] MEDS ORDERED: DEXAMETHASONE SODIUM PHOSPHATE 8 MG, DIPHENHYDRAMINE 25 MG in SODIUM CHLORIDE 100 ML IVPB ONE (09:30)
[2022-06-19] MEDS ORDERED: PALONOSETRON HCL 0.25 MG/5 ML VIAL IVPUSH ONE (09:30)
[2022-06-19] MEDS ORDERED: FAMOTIDINE 20 MG/50 ML IVPB 20 MG/50 ML MG IVPB ONE (09:30)
[2022-06-19 09:38] LABS: BASO % 0.9 % (0-2.0); HEMATOCRIT 26.7 % (32.4-45.2); LYMPH % 16.9 % (8-40); MCH 28.4 pg (25.7-33.7); MCHC 33.5 g/dl (32.0-36.0); MEAN CELL VOLUME 84.7 fl (80-96); MEAN PLT VOLUME 7.3 fl (7.5-11.1); MONO % 7.5 % (3.8-10.2); NEUT % 73.7 % (42.8-82.8); PLATELET COUNT 177 10^3/uL (134-434); RBC 3.16 M/mm3 (3.60-5.2); RDW 20.7 % (11.6-15.6); WHITE BLOOD COUNT 5.2 K/mm3 (4.0-10.0)
[2022-06-19] MEDS ORDERED: PACLITAXEL 84 MG in SODIUM CHLORIDE 250 ML IVPB ONE (10:00)
[2022-06-19 10:06] LABS: BLOOD UREA NITROGEN 15.3 mg/dL (7-18); CALCIUM 9.1 mg/dL (8.5-10.1); MAGNESIUM 1.8 mg/dL (1.8-2.4)
[2022-06-19 10:07] LABS: ALBUMIN 3.1 g/dl (3.4-5.0)
[2022-06-19 10:09] LABS: BILIRUBIN,DIRECT 0.2 mg/dL (0.0-0.2); CREATININE 0.7 mg/dL (0.55-1.3)
[2022-06-19 10:11] LABS: BILIRUBIN,TOTAL 0.6 mg/dL (0.2-1); TOT PROT 6.8 g/dl (6.4-8.2)
[2022-06-19 11:52] LABS: ANISOCYTOSIS 0; MACROCYTOSIS 0
[2022-06-19 14:52] VITALS: RESP 18
[2022-06-19 14:54] VITALS: BP 150/64; PULSE 88; TEMP 97.8
[2022-06-19] MEDS ORDERED: PORTA CATH FLUSH 10 ML IVPUSH PRN (16:59)
== END 2022-06-19 13:30 | disposition home or self-care (01) ==
LOC: JONCCHEMO 07:59
PROVIDERS: ATTEND Internal Medicine Hematology & Oncology
DX: Z51.11 Encounter for antineoplastic chemotherapy (principal); C34.90 Malignant neoplasm of unspecified part of unspecified bronchus or lung; Z85.42 Personal history of malignant neoplasm of other parts of uterus
CPT/HCPCS: 36415; 80048; 80076; 83735; 85025; 93005; 93010; 96367; 96413; J2469

== ENCOUNTER 2022-06-19 14:56 | Emergency (ER) | payer OTHER, BC ==
[2022-06-19 15:16] VITALS: BP 173/71; PULSE 95; RESP 17; TEMP 98.1; BMI 17.6
[2022-06-19 16:43] LABS: BASO % 0.3 % (0-2.0); HEMATOCRIT 29.8 % (32.4-45.2); HEMOGLOBIN 9.5 GM/dL (10.7-15.3); LYMPH % 7.9 % (8-40); MCH 27.3 pg (25.7-33.7); MEAN CELL VOLUME 85.4 fl (80-96); MEAN PLT VOLUME 7.9 fl (7.5-11.1); NEUT % 90.8 % (42.8-82.8); PLATELET COUNT 199 10^3/uL (134-434); RBC 3.49 M/mm3 (3.60-5.2); RDW 21.1 % (11.6-15.6); WHITE BLOOD COUNT 6.7 K/mm3 (4.0-10.0)
[2022-06-19 17:08] LABS: ALBUMIN 3.3 g/dl (3.4-5.0); CALCIUM 8.8 mg/dL (8.5-10.1)
[2022-06-19 17:09] LABS: BLOOD UREA NITROGEN 14.2 mg/dL (7-18); MAGNESIUM 1.8 mg/dL (1.8-2.4)
[2022-06-19 17:11] LABS: CREATININE 0.9 mg/dL (0.55-1.3); PHOSPHOROUS 2.3 mg/dL (2.5-4.9)
[2022-06-19 17:13] LABS: BILIRUBIN,TOTAL 0.6 mg/dL (0.2-1); TOT PROT 7.7 g/dl (6.4-8.2)
== END 2022-06-19 18:41 | disposition left against medical advice (07) ==
LOC: JER 14:56
DX: R07.9 Chest pain, unspecified (principal); Z85.118 Personal history of other malignant neoplasm of bronchus and lung
CPT/HCPCS: 36415; 71045-TC-FY; 80053; 83735; 84100; 84484; 85025; 85379; 93005; 93010; 99285-25; C9803-CS; U0003; U0005

== ENCOUNTER 2022-07-03 09:46 | Day surgery (SDC) | payer OTHER, BC ==
[~2022-07-03 09:46] MED LIST changes: +SODIUM CHLORIDE 250 ML IV ONE; -SODIUM CHLORIDE 250 ML IV SCH
[2022-07-03] MEDS ORDERED: PALONOSETRON HCL 0.25 MG/5 ML VIAL IVPUSH ONE (10:00)
[2022-07-03] MEDS ORDERED: DEXAMETHASONE SODIUM PHOSPHATE 8 MG, DIPHENHYDRAMINE 25 MG in SODIUM CHLORIDE 100 ML IVPB ONE (10:00)
[2022-07-03] MEDS ORDERED: FAMOTIDINE 20 MG/50 ML IVPB 20 MG/50 ML MG IVPB ONE (10:00)
[2022-07-03 10:30] LABS: BASO % 0.8 % (0-2.0); HEMOGLOBIN 9.3 GM/dL (10.7-15.3); LYMPH % 25.2 % (8-40); MCHC 32.1 g/dl (32.0-36.0); MEAN CELL VOLUME 87.1 fl (80-96); MEAN PLT VOLUME 7.3 fl (7.5-11.1); MONO % 13.6 % (3.8-10.2); NEUT % 59.4 % (42.8-82.8); PLATELET COUNT 198 10^3/uL (134-434); RBC 3.33 M/mm3 (3.60-5.2); RDW 22.5 % (11.6-15.6); WHITE BLOOD COUNT 4.1 K/mm3 (4.0-10.0)
[2022-07-03] MEDS ORDERED: PACLITAXEL 84 MG in SODIUM CHLORIDE 250 ML IVPB ONE (10:30)
[2022-07-03 10:53] LABS: ALBUMIN 3.2 g/dl (3.4-5.0); BLOOD UREA NITROGEN 13.9 mg/dL (7-18); MAGNESIUM 1.9 mg/dL (1.8-2.4)
[2022-07-03 10:57] LABS: BILIRUBIN,DIRECT 0.2 mg/dL (0.0-0.2); CREATININE 0.7 mg/dL (0.55-1.3)
[2022-07-03 10:58] LABS: BILIRUBIN,TOTAL 0.6 mg/dL (0.2-1); TOT PROT 7.2 g/dl (6.4-8.2)
[2022-07-03 11:34] LABS: ANISOCYTOSIS 3+; MACROCYTOSIS 0; PLATELET ESTIMATE DECREASED
[2022-07-03 15:36] VITALS: RESP 18; TEMP 97.5
[2022-07-03 15:44] VITALS: BP 152/69; PULSE 72
[2022-07-03] MEDS ORDERED: PORTA CATH FLUSH 10 ML IVPUSH PRN (15:44)
== END 2022-07-03 14:00 | disposition home or self-care (01) ==
LOC: JONCCHEMO 09:46
PROVIDERS: ATTEND Internal Medicine Hematology & Oncology
DX: Z51.11 Encounter for antineoplastic chemotherapy (principal); C34.90 Malignant neoplasm of unspecified part of unspecified bronchus or lung
CPT/HCPCS: 36415; 80048; 80076; 83735; 85025; 96367; 96375; 96413; J2469

== ENCOUNTER 2022-07-17 09:26 | Day surgery (SDC) | payer OTHER, BC ==
[2022-07-17] MEDS ORDERED: PALONOSETRON HCL 0.25 MG/5 ML VIAL IVPUSH ONE (09:30)
[2022-07-17] MEDS ORDERED: FAMOTIDINE 20 MG/50 ML IVPB 20 MG/50 ML MG IVPB ONE (09:30)
[2022-07-17] MEDS ORDERED: DEXAMETHASONE SODIUM PHOSPHATE 8 MG, DIPHENHYDRAMINE 25 MG in SODIUM CHLORIDE 100 ML IVPB ONE (09:30)
[2022-07-17] MEDS ORDERED: PACLITAXEL 84 MG in SODIUM CHLORIDE 250 ML IVPB ONE (10:00)
[2022-07-17 10:15] LABS: BASO % 0.6 % (0-2.0); HEMATOCRIT 30.2 % (32.4-45.2); HEMOGLOBIN 9.7 GM/dL (10.7-15.3); LYMPH % 25.4 % (8-40); MCH 28.1 pg (25.7-33.7); MEAN CELL VOLUME 87.8 fl (80-96); MEAN PLT VOLUME 7.5 fl (7.5-11.1); MONO % 11.6 % (3.8-10.2); NEUT % 61.4 % (42.8-82.8); PLATELET COUNT 188 10^3/uL (134-434); RBC 3.44 M/mm3 (3.60-5.2); RDW 21.3 % (11.6-15.6); WHITE BLOOD COUNT 3.7 K/mm3 (4.0-10.0)
[2022-07-17 10:34] LABS: ALBUMIN 3.5 g/dl (3.4-5.0); BLOOD UREA NITROGEN 13.8 mg/dL (7-18); CALCIUM 9.1 mg/dL (8.5-10.1); MAGNESIUM 1.9 mg/dL (1.8-2.4)
[2022-07-17 10:37] LABS: BILIRUBIN,DIRECT 0.1 mg/dL (0.0-0.2); CREATININE 0.7 mg/dL (0.55-1.3)
[2022-07-17 10:39] LABS: BILIRUBIN,TOTAL 0.5 mg/dL (0.2-1); TOT PROT 7.3 g/dl (6.4-8.2)
[2022-07-17 11:02] LABS: ANISOCYTOSIS 1+; MACROCYTOSIS 0
[2022-07-17 17:19] VITALS: RESP 20; TEMP 97.8
[2022-07-17 17:48] VITALS: BP 147/58; PULSE 82
[2022-07-17] MEDS ORDERED: PORTA CATH FLUSH 10 ML IVPUSH PRN (17:48)
== END 2022-07-17 14:30 | disposition home or self-care (01) ==
LOC: JONCCHEMO 09:26
PROVIDERS: ATTEND Internal Medicine Hematology & Oncology
DX: Z51.11 Encounter for antineoplastic chemotherapy (principal); C34.90 Malignant neoplasm of unspecified part of unspecified bronchus or lung
CPT/HCPCS: 36415; 80048; 80076; 83735; 85025; 96367; 96375; 96413; J2469

== ENCOUNTER 2022-07-31 09:01 | Day surgery (SDC) | payer OTHER, BC ==
[2022-07-31] MEDS ORDERED: FAMOTIDINE 20 MG/50 ML IVPB 20 MG/50 ML MG IVPB ONE (09:30)
[2022-07-31] MEDS ORDERED: DEXAMETHASONE SODIUM PHOSPHATE 8 MG, DIPHENHYDRAMINE 25 MG in SODIUM CHLORIDE 100 ML IVPB ONE (09:30)
[2022-07-31] MEDS ORDERED: PALONOSETRON HCL 0.25 MG/5 ML VIAL IVPUSH ONE (09:30)
[2022-07-31 09:43] LABS: EOS % 1.3 % (0-4.5); HEMOGLOBIN 9.8 GM/dL (10.7-15.3); LYMPH % 28.9 % (8-40); MCHC 32.6 g/dl (32.0-36.0); MEAN CELL VOLUME 89.2 fl (80-96); MEAN PLT VOLUME 7.6 fl (7.5-11.1); MONO % 11.8 % (3.8-10.2); PLATELET COUNT 175 10^3/uL (134-434); RBC 3.37 M/mm3 (3.60-5.2); RDW 19.8 % (11.6-15.6); WHITE BLOOD COUNT 3.7 K/mm3 (4.0-10.0)
[2022-07-31] MEDS ORDERED: PACLITAXEL 84 MG in SODIUM CHLORIDE 250 ML IVPB ONE (10:00)
[2022-07-31 10:06] LABS: CALCIUM 9.4 mg/dL (8.5-10.1)
[2022-07-31 10:07] LABS: ALBUMIN 3.5 g/dl (3.4-5.0); MAGNESIUM 1.9 mg/dL (1.8-2.4)
[2022-07-31 10:08] LABS: CHOLESTEROL 198 mg/dL (50-200)
[2022-07-31 10:09] LABS: BILIRUBIN,DIRECT 0.1 mg/dL (0.0-0.2); CHOLESTEROL 207 mg/dL (50-200); TRIGLYCERIDES 78 mg/dL (0-150); TRIGLYCERIDES 83 mg/dL (0-150)
[2022-07-31 10:10] LABS: CREATININE 0.7 mg/dL (0.55-1.3); LDL CHOLESTEROL (ONLY SJRH) 103 mg/dL (5-100)
[2022-07-31 10:11] LABS: LDL CHOLESTEROL (ONLY SJRH) 117 mg/dL (5-100); TOT PROT 7.1 g/dl (6.4-8.2)
[2022-07-31 10:12] LABS: BILIRUBIN,TOTAL 0.4 mg/dL (0.2-1); HDL CHOLESTEROL 80 mg/dL (40-60); HDL CHOLESTEROL 81 mg/dL (40-60)
[2022-07-31 14:38] VITALS: BP 145/55; PULSE 69; RESP 18; TEMP 97.7
[2022-07-31] MEDS ORDERED: PORTA CATH FLUSH 10 ML IVPUSH PRN (14:39)
== END 2022-07-31 14:55 | disposition home or self-care (01) ==
LOC: JONCCHEMO 09:01
PROVIDERS: ATTEND Internal Medicine Hematology & Oncology
DX: Z51.11 Encounter for antineoplastic chemotherapy (principal); C34.90 Malignant neoplasm of unspecified part of unspecified bronchus or lung
CPT/HCPCS: 36415; 80048; 80061; 80076; 82465; 83718; 83721; 83735; 84478; 85025; 96367; 96375; 96413; J2469

== ENCOUNTER 2022-08-14 09:42 | Day surgery (SDC) | payer OTHER, BC ==
[~2022-08-14 09:42] MED LIST changes: +DEXAMETHASONE SODIUM PHOSPHATE 8 MG, DIPHENHYDRAMINE 25 MG in SODIUM CHLORIDE 100 ML IVPB ONE; +FAMOTIDINE 20 MG/50 ML IVPB 20 MG/50 ML MG IVPB ONE; +PALONOSETRON HCL 0.25 MG/5 ML VIAL IVPUSH ONE
[2022-08-14] MEDS ORDERED: PACLITAXEL 84 MG in SODIUM CHLORIDE 250 ML IVPB ONE (10:00)
[2022-08-14 10:10] LABS: HEMATOCRIT 31.2 % (32.4-45.2); HEMOGLOBIN 10.4 GM/dL (10.7-15.3); LYMPH % 26.9 % (8-40); MCH 29.9 pg (25.7-33.7); MCHC 33.3 g/dl (32.0-36.0); MEAN CELL VOLUME 89.7 fl (80-96); MEAN PLT VOLUME 7.4 fl (7.5-11.1); MONO % 11.1 % (3.8-10.2); PLATELET COUNT 155 10^3/uL (134-434); RBC 3.48 M/mm3 (3.60-5.2); RDW 19.2 % (11.6-15.6); WHITE BLOOD COUNT 3.6 K/mm3 (4.0-10.0)
[2022-08-14 10:35] LABS: CALCIUM 9.4 mg/dL (8.5-10.1)
[2022-08-14 10:36] LABS: ALBUMIN 3.6 g/dl (3.4-5.0); BLOOD UREA NITROGEN 12.8 mg/dL (7-18); MAGNESIUM 1.9 mg/dL (1.8-2.4)
[2022-08-14 10:38] LABS: BILIRUBIN,DIRECT 0.1 mg/dL (0.0-0.2)
[2022-08-14 10:39] LABS: CREATININE 0.8 mg/dL (0.55-1.3)
[2022-08-14 10:40] LABS: BILIRUBIN,TOTAL 0.4 mg/dL (0.2-1); TOT PROT 7.4 g/dl (6.4-8.2)
[2022-08-14 18:03] VITALS: BP 192/71; PULSE 75; RESP 20; TEMP 97.8
[2022-08-14] MEDS ORDERED: PORTA CATH FLUSH 10 ML IVPUSH PRN (18:03)
[2022-08-15 18:08] LABS: FREE KAPPA,SERUM 39.4 mg/L (3.3-19.4)
== END 2022-08-14 13:35 | disposition home or self-care (01) ==
LOC: JONCCHEMO 09:42
PROVIDERS: ATTEND Internal Medicine Hematology & Oncology
DX: Z51.11 Encounter for antineoplastic chemotherapy (principal); C34.90 Malignant neoplasm of unspecified part of unspecified bronchus or lung
CPT/HCPCS: 36415; 80048; 80076; 83735; 83883; 85025; 96367; 96375; 96413; J2469

== ENCOUNTER 2022-08-28 11:41 | Day surgery (SDC) | payer OTHER, BC ==
[2022-08-28 10:26] LABS: BASO % 0.6 % (0-2.0); EOS % 1.4 % (0-4.5); HEMATOCRIT 31.1 % (32.4-45.2); LYMPH % 27.4 % (8-40); MCH 29.1 pg (25.7-33.7); MCHC 32.3 g/dl (32.0-36.0); MEAN CELL VOLUME 90.1 fl (80-96); MEAN PLT VOLUME 7.8 fl (7.5-11.1); MONO % 11.8 % (3.8-10.2); NEUT % 58.8 % (42.8-82.8); PLATELET COUNT 171 10^3/uL (134-434); RBC 3.45 M/mm3 (3.60-5.2); RDW 18.3 % (11.6-15.6); WHITE BLOOD COUNT 4.3 K/mm3 (4.0-10.0)
[2022-08-28 10:51] LABS: CALCIUM 9.3 mg/dL (8.5-10.1)
[2022-08-28 10:52] LABS: ALBUMIN 3.5 g/dl (3.4-5.0); BLOOD UREA NITROGEN 14.8 mg/dL (7-18); MAGNESIUM 1.9 mg/dL (1.8-2.4)
[2022-08-28 10:54] LABS: BILIRUBIN,DIRECT 0.2 mg/dL (0.0-0.2)
[2022-08-28 10:55] LABS: CREATININE 0.8 mg/dL (0.55-1.3)
[2022-08-28 10:56] LABS: BILIRUBIN,TOTAL 0.5 mg/dL (0.2-1); TOT PROT 6.8 g/dl (6.4-8.2)
[~2022-08-28 11:41] MED LIST changes: +PACLITAXEL 84 MG in SODIUM CHLORIDE 250 ML IVPB ONE
[2022-08-28 16:22] VITALS: TEMP 98.9
[2022-08-28 16:28] VITALS: BP 142/61; PULSE 83; RESP 20
[2022-08-28] MEDS ORDERED: PORTA CATH FLUSH 10 ML IVPUSH PRN (16:28)
== END 2022-08-28 14:00 | disposition home or self-care (01) ==
LOC: JONCCHEMO 11:41
PROVIDERS: ATTEND Internal Medicine Hematology & Oncology
DX: Z51.11 Encounter for antineoplastic chemotherapy (principal); C34.90 Malignant neoplasm of unspecified part of unspecified bronchus or lung
CPT/HCPCS: 36415; 80048; 80076; 82378; 83735; 85025; 96367; 96375; 96413; J2469

== ENCOUNTER 2022-10-03 10:16 | Day surgery (SDC) | payer OTHER, BC ==
[~2022-10-03 10:16] MED LIST changes: -PACLITAXEL 84 MG in SODIUM CHLORIDE 250 ML IVPB ONE; +PACLITAXEL 90 MG in SODIUM CHLORIDE 250 ML IVPB ONE
[2022-10-03] MEDS ORDERED: PACLITAXEL 84 MG in SODIUM CHLORIDE 250 ML IVPB ONE (10:30)
[2022-10-03 11:56] LABS: BASO % 0.6 % (0-2.0); EOS % 4.1 % (0-4.5); HEMATOCRIT 33.8 % (32.4-45.2); HEMOGLOBIN 11.3 GM/dL (10.7-15.3); LYMPH % 26.1 % (8-40); MCH 31.9 pg (25.7-33.7); MCHC 33.5 g/dl (32.0-36.0); MEAN CELL VOLUME 95.1 fl (80-96); MEAN PLT VOLUME 8.4 fl (7.5-11.1); NEUT % 62.2 % (42.8-82.8); PLATELET COUNT 149 10^3/uL (134-434); RBC 3.55 M/mm3 (3.60-5.2); RDW 16.6 % (11.6-15.6); WHITE BLOOD COUNT 5.1 K/mm3 (4.0-10.0)
[2022-10-03 12:17] LABS: ALBUMIN 3.6 g/dl (3.4-5.0); CALCIUM 9.7 mg/dL (8.5-10.1)
[2022-10-03 12:20] LABS: CREATININE 0.8 mg/dL (0.55-1.3)
[2022-10-03 12:21] LABS: BILIRUBIN,DIRECT 0.1 mg/dL (0.0-0.2)
[2022-10-03 12:22] LABS: BILIRUBIN,TOTAL 0.6 mg/dL (0.2-1); TOT PROT 7.8 g/dl (6.4-8.2)
[2022-10-03 19:15] VITALS: BP 137/55; PULSE 67; RESP 20; TEMP 98.1
== END 2022-10-03 16:00 | disposition home or self-care (01) ==
LOC: JONCCHEMO 10:16
PROVIDERS: ATTEND Internal Medicine Hematology & Oncology
DX: Z51.11 Encounter for antineoplastic chemotherapy (principal); C34.90 Malignant neoplasm of unspecified part of unspecified bronchus or lung
CPT/HCPCS: 36415; 80048; 80076; 83735; 85025; 96367; 96375; 96413; J2469

== ENCOUNTER 2022-10-17 10:18 | Day surgery (SDC) | payer OTHER, BC ==
[2022-10-17 11:27] LABS: BASO % 0.9 % (0-2.0); EOS % 1.6 % (0-4.5); HEMATOCRIT 32.6 % (32.4-45.2); HEMOGLOBIN 10.7 GM/dL (10.7-15.3); LYMPH % 31.9 % (8-40); MCH 29.6 pg (25.7-33.7); MCHC 32.8 g/dl (32.0-36.0); MEAN CELL VOLUME 90.2 fl (80-96); MONO % 9.4 % (3.8-10.2); NEUT % 56.2 % (42.8-82.8); PLATELET COUNT 173 10^3/uL (134-434); RBC 3.61 M/mm3 (3.60-5.2); RDW 16.5 % (11.6-15.6); WHITE BLOOD COUNT 3.7 K/mm3 (4.0-10.0)
[2022-10-17 11:58] LABS: CALCIUM 9.7 mg/dL (8.5-10.1)
[2022-10-17 11:59] LABS: ALBUMIN 3.6 g/dl (3.4-5.0); BLOOD UREA NITROGEN 15.5 mg/dL (7-18); MAGNESIUM 1.9 mg/dL (1.8-2.4)
[2022-10-17 12:01] LABS: BILIRUBIN,DIRECT 0.1 mg/dL (0.0-0.2)
[2022-10-17 12:02] LABS: CREATININE 0.8 mg/dL (0.55-1.3)
[2022-10-17 12:03] LABS: BILIRUBIN,TOTAL 0.4 mg/dL (0.2-1); TOT PROT 7.5 g/dl (6.4-8.2)
[2022-10-17 16:43] VITALS: BP 147/72; PULSE 81; RESP 20; TEMP 98.2
[2022-10-17] MEDS ORDERED: PORTA CATH FLUSH 10 ML IVPUSH PRN (16:43)
== END 2022-10-17 15:30 | disposition home or self-care (01) ==
LOC: JONCCHEMO 10:18
PROVIDERS: ATTEND Internal Medicine Hematology & Oncology
DX: Z51.11 Encounter for antineoplastic chemotherapy (principal); C34.90 Malignant neoplasm of unspecified part of unspecified bronchus or lung
CPT/HCPCS: 36415; 80048; 80076; 83735; 85025; 96367; 96375; 96413; J2469

== ENCOUNTER 2022-10-30 10:06 | Day surgery (SDC) | payer OTHER, BC ==
[2022-10-30 11:31] LABS: BASO % 0.6 % (0-2.0); EOS % 1.1 % (0-4.5); HEMATOCRIT 29.9 % (32.4-45.2); HEMOGLOBIN 9.9 GM/dL (10.7-15.3); MCH 30.2 pg (25.7-33.7); MCHC 33.3 g/dl (32.0-36.0); MEAN CELL VOLUME 90.7 fl (80-96); MEAN PLT VOLUME 7.5 fl (7.5-11.1); MONO % 12.5 % (3.8-10.2); NEUT % 53.8 % (42.8-82.8); PLATELET COUNT 160 10^3/uL (134-434); RBC 3.29 M/mm3 (3.60-5.2); RDW 16.9 % (11.6-15.6); WHITE BLOOD COUNT 3.2 K/mm3 (4.0-10.0)
[2022-10-30 11:53] LABS: ALBUMIN 3.4 g/dl (3.4-5.0); BLOOD UREA NITROGEN 19.1 mg/dL (7-18)
[2022-10-30 11:58] LABS: BILIRUBIN,TOTAL 0.5 mg/dL (0.2-1); CREATININE 0.8 mg/dL (0.55-1.3); TOT PROT 6.9 g/dl (6.4-8.2)
[2022-10-30 12:01] LABS: BILIRUBIN,DIRECT 0.1 mg/dL (0.0-0.2)
[2022-10-30 15:54] VITALS: TEMP 98.1
[2022-10-30 16:15] VITALS: BP 150/56; PULSE 82; RESP 18
[2022-10-30] MEDS ORDERED: PORTA CATH FLUSH 10 ML IVPUSH PRN (16:15)
== END 2022-10-30 14:55 | disposition home or self-care (01) ==
LOC: JONCCHEMO 10:06
PROVIDERS: ATTEND Internal Medicine Hematology & Oncology
DX: Z51.11 Encounter for antineoplastic chemotherapy (principal); C34.90 Malignant neoplasm of unspecified part of unspecified bronchus or lung
CPT/HCPCS: 36415; 80048; 80076; 83735; 85025; 96367; 96413; J2469

== ENCOUNTER 2022-11-13 09:41 | Day surgery (SDC) | payer OTHER, BC ==
[~2022-11-13 09:41] MED LIST changes: -DEXAMETHASONE SODIUM PHOSPHATE 8 MG, DIPHENHYDRAMINE 25 MG in SODIUM CHLORIDE 100 ML IVPB ONE; -FAMOTIDINE 20 MG/50 ML IVPB 20 MG/50 ML MG IVPB ONE; -PACLITAXEL 90 MG in SODIUM CHLORIDE 250 ML IVPB ONE; -PALONOSETRON HCL 0.25 MG/5 ML VIAL IVPUSH ONE
[2022-11-13] MEDS ORDERED: PALONOSETRON HCL 0.25 MG/5 ML VIAL IVPUSH ONE (10:00)
[2022-11-13] MEDS ORDERED: FAMOTIDINE 20 MG/50 ML IVPB 20 MG/50 ML MG IVPB ONE (10:00)
[2022-11-13] MEDS ORDERED: DEXAMETHASONE SODIUM PHOSPHATE 8 MG, DIPHENHYDRAMINE 25 MG in SODIUM CHLORIDE 100 ML IVPB ONE (10:00)
[2022-11-13] MEDS ORDERED: PACLITAXEL 90 MG in SODIUM CHLORIDE 250 ML IVPB ONE (10:30)
[2022-11-13 11:17] LABS: BASO % 0.8 % (0-2.0); EOS % 1.1 % (0-4.5); HEMATOCRIT 31.4 % (32.4-45.2); HEMOGLOBIN 10.2 GM/dL (10.7-15.3); LYMPH % 34.9 % (8-40); MCH 29.6 pg (25.7-33.7); MCHC 32.6 g/dl (32.0-36.0); MEAN CELL VOLUME 90.6 fl (80-96); MEAN PLT VOLUME 8.1 fl (7.5-11.1); MONO % 13.6 % (3.8-10.2); NEUT % 49.6 % (42.8-82.8); PLATELET COUNT 167 10^3/uL (134-434); RBC 3.46 M/mm3 (3.60-5.2); RDW 16.6 % (11.6-15.6); WHITE BLOOD COUNT 3.4 K/mm3 (4.0-10.0)
[2022-11-13 11:37] LABS: ALBUMIN 3.5 g/dl (3.4-5.0); BLOOD UREA NITROGEN 15.6 mg/dL (7-18); CALCIUM 8.8 mg/dL (8.5-10.1); MAGNESIUM 2.2 mg/dL (1.8-2.4)
[2022-11-13 11:40] LABS: BILIRUBIN,DIRECT 0.1 mg/dL (0.0-0.2); CREATININE 0.7 mg/dL (0.55-1.3)
[2022-11-13 11:42] LABS: BILIRUBIN,TOTAL 0.4 mg/dL (0.2-1); TOT PROT 6.9 g/dl (6.4-8.2)
[2022-11-13 18:39] VITALS: PULSE 81; RESP 20; TEMP 98
[2022-11-13 18:40] VITALS: BP 149/58
== END 2022-11-13 15:00 | disposition home or self-care (01) ==
LOC: JONCCHEMO 09:41
PROVIDERS: ATTEND Internal Medicine Hematology & Oncology
DX: Z51.11 Encounter for antineoplastic chemotherapy (principal); C34.90 Malignant neoplasm of unspecified part of unspecified bronchus or lung
CPT/HCPCS: 36415; 80048; 80076; 83735; 85025; 96367; 96375; 96413; J2469

== ENCOUNTER 2022-11-27 09:20 | Day surgery (SDC) | payer OTHER, BC ==
[2022-11-27] MEDS ORDERED: PALONOSETRON HCL 0.25 MG/5 ML VIAL IVPUSH ONE (10:00)
[2022-11-27] MEDS ORDERED: SODIUM CHLORIDE 250 ML IV ONE (10:00)
[2022-11-27] MEDS ORDERED: DEXAMETHASONE SODIUM PHOSPHATE 8 MG, DIPHENHYDRAMINE 25 MG in SODIUM CHLORIDE 100 ML IVPB ONE (10:00)
[2022-11-27] MEDS ORDERED: FAMOTIDINE 20 MG/50 ML IVPB 20 MG/50 ML MG IVPB ONE (10:00)
[2022-11-27 10:01] LABS: BASO % 0.8 % (0-2.0); EOS % 1.7 % (0-4.5); HEMATOCRIT 32.5 % (32.4-45.2); HEMOGLOBIN 10.9 GM/dL (10.7-15.3); LYMPH % 26.7 % (8-40); MCH 29.9 pg (25.7-33.7); MCHC 33.4 g/dl (32.0-36.0); MEAN CELL VOLUME 89.5 fl (80-96); MEAN PLT VOLUME 7.4 fl (7.5-11.1); MONO % 9.9 % (3.8-10.2); NEUT % 60.9 % (42.8-82.8); PLATELET COUNT 185 10^3/uL (134-434); RBC 3.63 M/mm3 (3.60-5.2); RDW 16.3 % (11.6-15.6); WHITE BLOOD COUNT 4.6 K/mm3 (4.0-10.0)
[2022-11-27 10:22] LABS: ALBUMIN 3.5 g/dl (3.4-5.0); BLOOD UREA NITROGEN 14.8 mg/dL (7-18); CALCIUM 9.2 mg/dL (8.5-10.1)
[2022-11-27 10:25] LABS: BILIRUBIN,DIRECT 0.1 mg/dL (0.0-0.2); CREATININE 0.7 mg/dL (0.55-1.3)
[2022-11-27 10:27] LABS: BILIRUBIN,TOTAL 0.4 mg/dL (0.2-1); TOT PROT 7.1 g/dl (6.4-8.2)
[2022-11-27] MEDS ORDERED: PACLITAXEL 90 MG in SODIUM CHLORIDE 250 ML IVPB ONE (10:30)
[2022-11-27 14:05] VITALS: BP 180/72; PULSE 77; RESP 20; TEMP 97.9
[2022-11-27] MEDS ORDERED: PORTA CATH FLUSH 10 ML IVPUSH PRN (14:05)
== END 2022-11-27 13:50 | disposition home or self-care (01) ==
LOC: JONCCHEMO 09:20
PROVIDERS: ATTEND Internal Medicine Hematology & Oncology
DX: Z51.11 Encounter for antineoplastic chemotherapy (principal); C34.90 Malignant neoplasm of unspecified part of unspecified bronchus or lung
CPT/HCPCS: 36415; 80048; 80076; 83735; 85025; 96367; 96375; 96413; J2469

== ENCOUNTER 2022-12-11 09:50 | Day surgery (SDC) | payer OTHER, BC ==
[~2022-12-11 09:50] MED LIST changes: +DEXAMETHASONE SODIUM PHOSPHATE 8 MG, DIPHENHYDRAMINE 25 MG in SODIUM CHLORIDE 100 ML IVPB ONE; +FAMOTIDINE 20 MG/50 ML IVPB 20 MG/50 ML MG IVPB ONE; +PALONOSETRON HCL 0.25 MG/5 ML VIAL IVPUSH ONE
[2022-12-11] MEDS ORDERED: PACLITAXEL 90 MG in SODIUM CHLORIDE 250 ML IVPB ONE (10:00)
[2022-12-11 10:38] LABS: BASO % 0.6 % (0-2.0); EOS % 1.3 % (0-4.5); HEMATOCRIT 30.5 % (32.4-45.2); LYMPH % 27.3 % (8-40); MCH 29.7 pg (25.7-33.7); MCHC 32.9 g/dl (32.0-36.0); MEAN CELL VOLUME 90.2 fl (80-96); MEAN PLT VOLUME 7.5 fl (7.5-11.1); MONO % 10.3 % (3.8-10.2); NEUT % 60.5 % (42.8-82.8); PLATELET COUNT 181 10^3/uL (134-434); RBC 3.38 M/mm3 (3.60-5.2); WHITE BLOOD COUNT 4.5 K/mm3 (4.0-10.0)
[2022-12-11 11:07] LABS: ALBUMIN 3.3 g/dl (3.4-5.0); CALCIUM 9.1 mg/dL (8.5-10.1); MAGNESIUM 2.1 mg/dL (1.8-2.4)
[2022-12-11 11:08] LABS: BLOOD UREA NITROGEN 16.7 mg/dL (7-18)
[2022-12-11 11:10] LABS: BILIRUBIN,DIRECT 0.1 mg/dL (0.0-0.2); CREATININE 0.8 mg/dL (0.55-1.3)
[2022-12-11 11:12] LABS: BILIRUBIN,TOTAL 0.4 mg/dL (0.2-1); TOT PROT 6.8 g/dl (6.4-8.2)
[2022-12-11 16:06] VITALS: BP 148/57; PULSE 70; RESP 19
[2022-12-11] MEDS ORDERED: PORTA CATH FLUSH 10 ML IVPUSH PRN (16:06)
[2022-12-11 16:08] VITALS: TEMP 99.1
== END 2022-12-11 15:50 | disposition home or self-care (01) ==
LOC: JONCCHEMO 09:50
PROVIDERS: ATTEND Internal Medicine Hematology & Oncology
DX: Z51.11 Encounter for antineoplastic chemotherapy (principal); C34.90 Malignant neoplasm of unspecified part of unspecified bronchus or lung
CPT/HCPCS: 36415; 80048; 80061; 80076; 83036; 83735; 84439; 84443; 85025; 96367; 96375; 96413; J2469

== ENCOUNTER 2022-12-18 10:44 | Day surgery (SDC) | payer OTHER, BC ==
[2022-12-18 12:09] LABS: BASO % 0.8 % (0-2.0); EOS % 1.7 % (0-4.5); HEMOGLOBIN 10.1 GM/dL (10.7-15.3); LYMPH % 27.8 % (8-40); MCH 29.6 pg (25.7-33.7); MCHC 33.9 g/dl (32.0-36.0); MEAN CELL VOLUME 87.5 fl (80-96); MONO % 5.7 % (3.8-10.2); PLATELET COUNT 185 10^3/uL (134-434); RBC 3.42 M/mm3 (3.60-5.2); RDW 15.5 % (11.6-15.6); WHITE BLOOD COUNT 4.5 K/mm3 (4.0-10.0)
[2022-12-18] MEDS ORDERED: SODIUM CHLORIDE 250 ML IV ONE (12:30)
[2022-12-18] MEDS ORDERED: PALONOSETRON HCL 0.25 MG/5 ML VIAL IVPUSH ONE (12:30)
[2022-12-18 12:34] LABS: CALCIUM 9.2 mg/dL (8.5-10.1)
[2022-12-18 12:35] LABS: ALBUMIN 3.4 g/dl (3.4-5.0); BLOOD UREA NITROGEN 19.8 mg/dL (7-18); MAGNESIUM 2.1 mg/dL (1.8-2.4)
[2022-12-18 12:37] LABS: BILIRUBIN,DIRECT 0.1 mg/dL (0.0-0.2); CREATININE 0.8 mg/dL (0.55-1.3)
[2022-12-18 12:39] LABS: BILIRUBIN,TOTAL 0.4 mg/dL (0.2-1); TOT PROT 6.9 g/dl (6.4-8.2)
[2022-12-18] MEDS ORDERED: FAMOTIDINE 20 MG/50 ML IVPB 20 MG/50 ML MG IVPB ONE (13:00)
[2022-12-18] MEDS ORDERED: DEXAMETHASONE INJECTION 8 MG, DIPHENHYDRAMINE 25 MG in SODIUM CHLORIDE 100 ML IVPB ONE (13:00)
[2022-12-18] MEDS ORDERED: PACLITAXEL 90 MG in SODIUM CHLORIDE 250 ML IVPB ONE (13:30)
[2022-12-18 16:23] VITALS: BP 162/52; PULSE 54; RESP 20; TEMP 97.9
== END 2022-12-18 16:54 | disposition home or self-care (01) ==
LOC: JONCCHEMO 10:44
PROVIDERS: ATTEND Internal Medicine Hematology & Oncology
DX: Z51.11 Encounter for antineoplastic chemotherapy (principal); C34.90 Malignant neoplasm of unspecified part of unspecified bronchus or lung
CPT/HCPCS: 36415; 80048; 80076; 83735; 85025; 96367; 96375; 96413; J1100; J2469